=== PATIENT | female | born 1955 | race Caucasian/White ===

== ENCOUNTER 2020-12-05 16:29 | Inpatient (IN) | payer MEDICARE ==
[~2020-12-05] VITALS: Ht 160 cm; Wt 45.4 kg
--- NOTE | ~2020-12-05 | HEMODYNAMI ---
PATIENT:DEE BROWN MEDICAL RECORD: [id number] : 51 LOCATION:[facility] D.2117 ADMISSION DATE: 12/06/20 Generatedon:111:28 Patient name: DEE BROWN Patient #: [id number] : 1955 Date of study: 12/07/2020 Page: Of Hemodynamic Procedure Report Patient Data Patient Demographics Procedure consent was obtained First Name: DEE Gender: Female Last Name: STEPHANIE : 1955 Patient #: [id number] Age: 65 year(s) Race: SSN: [id number] Additional ID: [id number] Contact details [address]: [address] [place] [address] State: [place] City: [place] Zip code: [address] Past Medical History Allergies Allergen Reaction Date Comments Reported Other allergy 12/07/2020 N Admission Admission Data Admission Date: 12/06/2020 Admission Time: 10:18 Room #: D.2117 Lab Results Lab Result Date: 12/07/2020 Lab Result Time: 0:00 Biochemistry Name Units Result Min Max BUN mg/dl 33 --(----)-* 7 18 Creatinine mg/dl 1.3 --(---*)-- 0.6 1.3 eGFR ml/min 43 *-(----)-- 90 120 NONAFRICAN CBC Name Units Result Min Max Hemoglobin g/dl 11.5 *-(----)-- 13.5 17.5 Procedure Procedure Types Cath Procedure Diagnostic Procedure C [facility] w/Coronaries Sedation Charges Moderate Sedation 25-39 minutes PCI Procedure Hemochron ACT Test PTCA PTCA Initial Procedure Description Procedure Date Procedure Date: 12/07/2020 Procedure Start Time: 11:03 Procedure End Time: 11:26 Procedure Staff Name Function Robbi Mckenna MD Performing Physician Dorys Perry RT Monitor Deanna Maurice RT Scrub Ania Blunt RN Nurse Procedure Data Cath Procedure Fluoroscopy Diagnostic fluoroscopy Total fluoroscopy Time: 3.6 time: 3.6 min min Diagnostic fluoroscopy Total fluoroscopy dose: 506 dose: 506 mGy mGy Contrast Material Contrast Material Type Amount (ml) Isovue 300 89 Entry Location Entry Primary Successful Side Size Upsize Upsize Entry Closure Succes sful Closure Location (Fr) 1 (Fr) 2 (Fr) Remarks Device Remarks Femoral Right 5 Fr 6 Fr Exoseal artery Short Estimated blood loss: 10 ml Diagnostic catheters Device Type Used For End Catheter Placement MULTIPACK JL 4.0 5Fr Procedure catheter MULTIPACK 3DRC 5Fr Procedure catheter MULTIPACK Pigtail 5 Fr Ventriculography catheter Procedure Complications No complications Procedure Medications Medication Administration Route Dosage Oxygen etCO2 Nasal cannula 2 l/min Heparin Flush Bag added to field 2 bags (1000units/500ml NS) Lidocaine 2% added to field 20 0.9% NaCl I.V. 100 ml/hr Fentanyl I.V. 25 mcg Versed 0.5 mg Fentanyl I.V. 25 mcg Versed 0.5 mg Heparin Bolus I.V. 4000 units Integrilin (Bolus I.V. 4.5 ml 2mg/ml) Brilinta P.O. 180 mg Hemodynamics Rest HGB: 11.5 (g/dl) Heart Rate: 95 (bpm) Pressure Samples Time Site Value (mmHg) Purpose Heart Use Rate(bpm) 11:12 LV 89/7,12 Snapshot 74 Gradients Valve Time Site Site Mean SEP/DFP Peak To Heart Use 1 2 (mmHg) (sec/min) Peak Rate (mmHg) (bpm) Aortic 11:12 LV AO 74 Snapshots Pre Cath Intra NCS Post Cath Vital Signs Time Heart Resp SPO2 etCO2 NIBP Rhythm Pain Sedation Rate (ipm) (%) (mmHg) (mmHg) Status Level (bpm) 10:52:37 84 13 98 0 114/81(98) NSR 0 (11) 10(A) , No pain 10:56:42 81 15 97 0 106/69(90) NSR 0 (11) 10(A) , No pain 11:00:48 79 17 97 0 100/55(86) NSR 0 (11) 10(A) , No pain 11:04:50 74 17 98 0 99/64(81) NSR 0 (11) 9(A) , No pain 11:08:48 74 15 99 0 107/74(87) NSR 0 (11) 9(A) , No pain 11:12:52 74 19 97 0 94/62(78) NSR 0 (11) 9(A) , No pain 11:16:53 70 18 98 0 88/55(79) NSR 0 (11) 9(A) , No pain 11:20:51 65 13 99 0 86/56(75) NSR 0 (11) 9(A) , No pain 11:24:48 134 15 99 0 90/57(75) NSR 0 (11) 9(A) , No pain Medications Time Medication Route Dose Verified Delivered Reason Notes Effectiveness by by 10:50:32 Oxygen etCO2 2 Ania Ania for low 02 sats Nasal l/min Merlene lBunt, cannula RN RN 10:50:39 Heparin Flush added 2 Ania Ania used for Bag to bags Merlene Blunt procedure (1000units/500ml field RN RN NS) 10:51:17 Lidocaine 2% added 20ml Ania Robbi for local to vial St Merlene John anesthetic field BILLY FRAUSTO 10:51:27 0.9% NaCl I.V. 100 Ania Ania Per physician ml/hr Merlene Blunt, RN RN 10:58:28 Fentanyl I.V. 25 Ania Ania for sedation mcg Merlene Blunt, RN RN 10:58:34 Versed 0.5 Ania Ania mg Merlene Blunt, RN RN 11:14:14 Fentanyl I.V. 25 Ania Ania for sedation mcg Merlene Blunt, RN RN 11:14:17 Versed 0.5 Ania Ania mg Merlene Blunt, RN RN 11:15:36 Heparin Bolus I.V. 4000 Ania Ania for units Merlene Blunt, anticoagulation RN RN 11:25:27 Brilinta P.O. 180 Ania Ania for RELOA DED mg Merlene Blunt, antiplatelet PER RN RN alem FREEDMAN, UNSURE OF WHEN LAST DAILY DOSE WAS GIVEN. 11:15:36 Integrilin I.V. 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 10:27:51 Time tracking: Regular hours (M-F 7:00 - 5:00) 10:27:54 Plan of Care:Hemodynamics will remain stable., Cardiac rhythm will remain stable., Comfort level will be maintained., Respiratory function will remain adequate., Patient/ family verbilizes understanding of procedure., Procedure tolerated without complication., Recovers from procedure without complications.. 10:27:55 Deanna Maurice RT(R) sent for patient. Start room use. 10:49:48 Patient received from Med II to CCL 2 Alert and oriented. Tansferred to table in Supine position. 10:49:49 Warm blankets applied, and suellen hugger turned on for patient comfort. 10:49:49 Correct patient and procedure confirmed by team. 10:49:51 ECG and BP/O2 sat monitors applied to patient. 10:49:51 Vital chart was started 10:49:52 Baseline sample Acquired. 10:49:56 Rhythm: sinus rhythm 10:50:00 Full Disclosure recording started 10:50:12 H&P Date Dictated: 12/06/2020 Within 30 days and on chart., H&P Addendum completed by physician on day of procedure. (MUST COMPLETE FOR ALL OUTPATIENTS). 10:50:14 Pre-procedure instructions explained to patient. 10:50:16 Family unavailable. 10:50:18 Patient NPO since Midnight. 10:50:30 Patient allergic to Other allergyPCN 10:50:32 Oxygen 2 l/min etCO2 Nasal cannula was administered by Ania Blunt RN; for low 02 sats; Verbal order read back and verified. 10:50:34 Is the patient allergic to Iodine/contrast media? No. 10:50:35 Was the patient premedicated? Yes 10:50:38 Is patient on blood thinner?Yes 10:50:39 Heparin Flush Bag (1000units/500ml NS) 2 bags added to field was administered by Ania Blunt RN; used for procedure; Verbal order read back and verified. 10:50:41 ACC The patient was administered the following blood thiners within the last 24 hours: ACCAspirin 10:50:43 Patient diabetic? No. 10:50:50 Snore? No 10:50:58 Airway obstruction? Yes COPD 10:51:03 Patient pain scale 0/10 ?. 10:51:13 IV patent on arrival in left hand with 0.9% NaCl at [facility]. 10:51:17 Lidocaine 2% 20ml vial added to field was administered by Robbi Mckenna MD; for local anesthetic; Verbal order read back and verified. 10:51:27 0.9% NaCl 100 ml/hr I.V. was administered by Ania Blunt RN; Per physician; Verbal order read back and verified. 10::45 Lab Result : BUN 33 mg/dl 10::45 Lab Result : Creatinine 1.3 mg/dl 10::45 Lab Result : eGFR NONAFRICAN 43 ml/min 10::45 Lab Result : Hemoglobin 11.5 g/dl 10:52:08 Lab results completed and on chart. 10:52:13 Right groin area was prepped with chlora-prep and draped in sterile fashion 10:52:14 Alarms reviewed by R. N. 10:52:22 Sharps counted by scrub and verified by R.N. 10:52:27 Physician arrived 10:52:27 --------ALL STOP TIME OUT------ 10:52:28 Final Timeout: patient, procedure, and site verified with staff and physician. All members of the team are in agreement. 10:52:31 Right groin site verified by team. 10:52:36 Fire Safety Assessment: A--An alcohol-based skin anteseptic being used preoperatively., C--Open oxygen or nitrous oxide is being used., D--An ESU, laser, or fiber-optic light is being used. 10:52:44 Physical assessment completed. ASA score P 3 - A patient with severe systemic disease as per Robbi Mckenna MD. 10:52:47 3a) 45-59 Moderately reduced kidney function. 10:52:50 Maximum allowable contrast dose (3.7 X eGFR X 0.75)119 ml. 10:52:55 Sedation plan: IV Moderate Sedation Medication:Versed, Fentanyl 10:53:00 Use device set Femoral Dx 10:53:02 ACIST Syringe (65042) opened to sterile field. 10:53:06 Bag Decanter (2001S) opened to sterile field. 10:53:07 Medline Cath Pack ([id number]) opened to sterile field. 10:53:09 ACIST Hand Control (08664) opened to sterile field. 10:53:10 ACIST Manifold (12984) opened to sterile field. 10:53:11 DIAGNOSTIC Multipack 5Fr catheter set (FC1864) opened to sterile field. 10:53:12 Tegaderm 4 x 4 (1626W) opened to sterile field. 10:53:15 SHEATH 5FR [place] (CFA516) opened to sterile field. 10:53:16 EMERALD Guide Wire (228-415) opened to sterile field. 10:58:28 Fentanyl 25 mcg I.V. was administered by Ania Blunt RN; for sedation; Verbal order read back and verified. 10:58:34 Versed 0.5 mg was administered by Ania Blunt RN; ; Verbal order read back and verified. 11:01:32 Zero performed for pressure channel P1 11:02:14 Procedure started. 11:03:14 Local anesthetic to right femoral artery with Lidocaine 2% by Robbi Mckenna MD.INITIAL ACCESS ONLY 11:08:05 A 5 Fr sheath was inserted into the Right Femoral artery 11:08:17 A MULTIPACK JL 4.0 5Fr catheter was advanced over the wire and used for Procedure. 11:08:46 LCA angiography performed. 11:10:19 Catheter removed. 11:10:27 A MULTIPACK 3DRC 5Fr catheter was advanced over the wire and used for Procedure. 11:11:01 RCA angiography performed. 11:11:12 Catheter removed. 11:11:20 A MULTIPACK Pigtail 5 Fr catheter was advanced over the wire and used for Ventriculography. 11:11:28 LV gram done using PALM 11:12:05 EF : 10 % 11:12:41 Catheter removed. 11:13:56 SHEATH 6FR [place] (VER115) opened to sterile field. 11:13:58 GUIDE 6FR XBLAD 3.5 catheter ([id number]) opened to sterile field. 11:13:59 BMW 300cm Cosmos 2 J wire ([id number]) opened to sterile field. 11:14:05 Proceeding to intervention. 11:14:13 Sheath upsized to a 6 Fr Short. 11:14:14 Fentanyl 25 mcg I.V. was administered by Ania Blunt RN; for sedation; Verbal order read back and verified. 11:14:17 Versed 0.5 mg was administered by Ania Blunt RN; ; Verbal order read back and verified. 11:14:28 6 Fr XBLAD3.5 guide catheter was inserted over the wire 11:14:36 BMW wire advanced. 11:15:36 Heparin Bolus 4000 units I.V. was administered by Ania Blunt RN; for anticoagulation; Verbal order read back and verified. 11:16:08 Wire advanced across lesion. 11:17:26 INFLATOR Merit BasixCompak (VT2327) opened to sterile field. 11:18:59 Inflate balloon Inflation number: 1 A EUPHORA 3.0 x 15 Balloon ([id number]) was prepped and advanced across the Ramus , then inflated to 12 YAHIR for 0:10 (min:sec) . 11:19:18 multi inflations 11:22:24 EXOSEAL 6Fr (EX600) opened to sterile field. 11:22:55 Wire removed. 11:22:56 Guide catheter removed. 11:23:09 Sheath removed intact; hemostasis achieved with Exoseal to the Right Femoral artery. 11:23:11 Procedure ended.(Physican Out) 11:23:21 Fluoroscopy time 03.60 minutes. 11:23:25 Fluoroscopy dose: 506 mGy 11:23:25 Flurop Dose total: 506 11:23:31 Dose Area Product 34038 mGy/cm. 11:23:34 Contrast amount:Isovue 300 89ml. 11:23:36 Maximum allowable dose exceeded? No. 11:23:38 Insertion/operative site no bleeding no hematoma. 11:23:48 Post-procedure physical assessment completed. ASA score P 2 - A patient with mild systemic disease as per Robbi Mckenna MD. 11:23:55 Post procedure rhythm: unchanged. 11:24:00 Estimated blood loss: 10 ml 11:24:02 Post procedure instruction explained to patient.Patient verbalizes understanding. 11:25:02 Procedure type changed to Cath procedure, Diagnostic procedure, LHC, LHC w/Coronaries, Sedation Charges, Moderate Sedation 25-39 minutes, PCI procedure, Hemochron ACT Test, PTCA, PTCA Initial 11:25:03 Procedure and supply charges have been captured, reviewed, submitted and are correct. 11:25:27 Brilinta 180 mg P.O. was administered by Ania Blunt RN; for antiplatelet therapy; RELOADED PER DR. FREEDMAN, UNSURE OF WHEN LAST DAILY DOSE WAS GIVEN. Verbal order read back and verified. 11:26:29 Procedure Complication : No complications 11:26:31 Vital chart was stopped 11:26:38 [facility] Findings: MVD- PCI performed (see procedure note) 11::39 ACT drawn and resulted at 248 seconds. (normal therapeutic range 180-240 seconds). 11:26:41 Operative report dictated upon procedure completion. 11:26:42 See physician's report for complete and final results. 11:26:45 Report given to [facility]. 11:26:54 Patient transfered to [facility] with Bed. 11:26:56 Procedure ended. 11::56 Full Disclosure recording stopped 11:27:02 End room use (Document Last) 11:27:39 End room use (Document Last) 11:28:06 End room use (Document Last) 11:15:36 Integrilin (Bolus 2mg/ml) 4.5 ml I.V. was administered by Ania Blunt RN; for anticoagulation; 5.5ml wasted Verbal order read back and verified. Intervention Summary Intervention Notes Time ActionType Lesion and Equipment Action# Pressure Duration Attributes Used 11:18:59 Inflate Ramus EUPHORA 1 12 00:10 balloon 3.0 x 15 Balloon ([id number]) Device Usage Item Name Manufacture Quantity Catalog Hospital Part Current Minimal L ot# / Number Charge Number Stock Stock Serial# Code ACIST Acist 1 55753 007125 154048 511758 20 Syringe Medical (63903) Systems Inc Bag Microtek 1 2001S 127989 61774 520397 5 Decanter Medical Inc. () Medline Medline 1 [id number] 812821 09667 082784 5 Cath Pack ([id number]) ACIST Hand Acist 1 62582 443086 338118 301714 5 Control Medical (95209) Systems Inc ACIST Acist 1 81292 572391 490079 818011 5 Manifold Medical (79605) Systems Inc DIAGNOSTIC Cardinal 1 OA2566 648302 19597 984843 30 iCAD 5Fr catheter set (PD9837) Tegaderm 4 3M 1 1626W 984874 000286 909458 5 x 4 (1626W) SHEATH 5FR Terumo 1 CHJ045 343176 594151 594289 5 [place] (FZE821) EMERALD Cardinal 1 502-455 101006 986917 252632 5 Guide Wire Health (502455) MULTIPACK Cardinal 1 475838 5 JL 4.0 5Fr Health catheter MULTIPACK Cardinal 1 803007 5 3DRC 5Fr Health catheter MULTIPACK Cardinal 1 736537 5 Pigtail 5 Health Fr catheter SHEATH 6FR Terumo 1 TSL199 625132 271932 222619 40 [place] (QOP335) GUIDE 6FR Cardinal 1 55050842 546681 333374 243671 10 XBLAD 3.5 Health catheter (75280846) BMW 300cm Paz 1 [id number] 034840 115766 920515 5 Cosmos 2 Vascular J wire (1414884N) INFLATOR Merit 1 KQ8190 318840 896428 896360 15 [facility] Medical BasixCompak (GN2277) EUPHORA 3.0 Medtronic 1 [id number] 479340 294893 274548 5 2 [id number] x 15 Balloon ([id number]) EXOSEAL 6Fr Cardinal 1 EX600 616312 879317 446387 10 (EX600) Health Signature Audit [place] Stage Time Signature Unsigned Intra-Procedure 12/07/2020 Dorys Perry 11:27:39 AM RT(R) Intra-Procedure 12/07/2020 Ania Blunt 11:28:06 AM RN Intra-Procedure 12/07/2020 Robbi Levine 11:28:35 AM Alan FRAUSTO Signatures Performing Physician : Signature : Robbi Mckenna MD Date : Time : Monitor : Dorys Perry Signature : RT Date : Time : Nurse : Ania Blunt, Signature : RN Date : Time : [address] [place] [address] [place] [address]
[~2020-12-05 16:29] MED LIST: ADOXA100 MG PO; AZITHROMYCIN500 MG PO; BRILINTA90 MG PO; CARAFATE1 G PO; COREG 3.1253.125 MG PO; ENTRESTO 24 MG1 EACH PO; FLORAJEN3 CAPS460 MG PO; K-TAB10 MEQ PO; LASIX40 MG PO; MEDROL DOSE PACK4 MG PO; MUCINEX600 MG PO; NITROQUICK0.4 MG SL; OMNICEF300 MG PO; PROTONIX40 MG PO; TESSALON PERLE100 MG PO; VENTOLIN HFA [SP8 GM INH; ZITHROMAX250 MG PO; ZOLOFT50 MG PO
[2020-12-05 17:05] LABS: BASOPHILS 1.7 % (0-2); EOSINOPHILS 1.9 % (0-7); HEMATOCRIT 37.9 % (36.0-48.0); HEMOGLOBIN 12.3 g/dL (12-16); IMMATURE GRANULOCYTES 0.3 % (0-5); LYMPHOCYTE ABS# 2.04 10x3/uL (1.18-3.74); LYMPHOCYTES 19.3 % (15-50); MCH 28.9 pg (26.0-34.0); MCHC 32.5 g/dL (31.0-37.0); MEAN PLATELET VOLUME 9.8 fL (7.4-10.4); MONOCYTES 7.4 % (2-11); NEUTROPHIL ABS# 7.34 10x3/uL (1.56-6.13); NEUTROPHILS 69.4 % (40-80); PLATELET COUNT 372 10x3/uL (130-400); RBC 4.26 10x6/uL (4.00-5.40); RDW 16.1 % (11.5-14.5); WBC 10.6 10x3/uL (4.8-10.8)
[2020-12-05 17:22] LABS: APTT 34.6 SECONDS (22.8-39.4); INR 1.26 (0.85-1.17); PROTIME 14.6 SECONDS (11.6-15.0)
[2020-12-05 17:26] LABS: CALC OSMOLALITY 280 mosm/kg (275-300); CARBON DIOXIDE 22.3 mmol/L (21.0-32.0); CHLORIDE - SERUM 101 mmol/L (98-107); CREATININE - SERUM 1.3 mg/dL (0.6-1.3); GLUCOSE 123 mg/dL (74-106); POTASSIUM - SERUM 3.9 mmol/L (3.5-5.1); SODIUM 137 mmol/L (136-145); UREA NITROGEN 28 mg/dL (7-18); eGFR NON AFRICAN AMERICAN 43 mL/min (90-120)
[2020-12-05 17:33] LABS: ALBUMIN 3.4 g/dL (3.4-5.0); ALKALINE PHOSPHATASE 100 U/L (30-120); ALT (SGPT) 20 U/L (10-68); BILIRUBIN - TOTAL 0.65 mg/dL (0.2-1.3); CKMB 2.4 U/L (0.0-3.6); CREATINE KINASE 48 UL (21-215); MAGNESIUM - SERUM 2.1 mg/dL (1.8-2.4); PROTEIN - SERUM 7.5 g/dL (6.4-8.2); TROPONIN-I 0.034 ng/mL (0.000-0.060)
--- NOTE | 2020-12-05 21:43 | NUR ---
ADMIT TO ROOM 2117 FROM ER. ALERT/ORIENTED. ADMISSION ASSESSMENT AND HISTORY COMPLETED. HOME MEDS REVIEWED. PT STATES SHE HAS NOT TAKEN ANY MEDS FOR OVER ONE MONTH DUE TO FINANCIAL ISSUES. HER HOME SITUATION IS ALSO UP IN THE AIR AND SHE IS JUST "HOUSE TO HOUSE" AT THIS TIME PER PATIENT.
[2020-12-05 21:50] VITALS: BMI 17.7
[2020-12-05 23:00] LABS: CKMB 1.9 U/L (0.0-3.6); CREATINE KINASE 53 UL (21-215); TROPONIN-I 0.028 ng/mL (0.000-0.060)
[2020-12-06 00:30] VITALS: BP 101/51
[2020-12-06 03:49] LABS: CREATINE KINASE 54 UL (21-215); TROPONIN-I 0.038 ng/mL (0.000-0.060)
[2020-12-06 04:30] VITALS: BP 100/60
[2020-12-06 06:23] LABS: BASOPHILS 1.4 % (0-2); HEMATOCRIT 35.5 % (36.0-48.0); HEMOGLOBIN 11.1 g/dL (12-16); IMMATURE GRANULOCYTES 0.2 % (0-5); LYMPHOCYTE ABS# 3.02 10x3/uL (1.18-3.74); LYMPHOCYTES 29.8 % (15-50); MCH 28.1 pg (26.0-34.0); MCHC 31.3 g/dL (31.0-37.0); MCV 89.9 fL (80.0-100.0); MEAN PLATELET VOLUME 10.1 fL (7.4-10.4); MONOCYTES 8.9 % (2-11); NEUTROPHIL ABS# 5.53 10x3/uL (1.56-6.13); NEUTROPHILS 54.7 % (40-80); PLATELET COUNT 358 10x3/uL (130-400); RBC 3.95 10x6/uL (4.00-5.40); RDW 16.1 % (11.5-14.5); WBC 10.1 10x3/uL (4.8-10.8)
[2020-12-06 06:59] LABS: ANION GAP 14.7 mmol/L (8-16); BILIRUBIN - TOTAL 0.52 mg/dL (0.2-1.3); CALCIUM 9.1 mg/dL (8.5-10.1); CARBON DIOXIDE 24.7 mmol/L (21.0-32.0); CREATININE - SERUM 1.4 mg/dL (0.6-1.3); PHOSPHOROUS 5.3 mg/dL (2.5-4.9); POTASSIUM - SERUM 4.4 mmol/L (3.5-5.1); PROTEIN - SERUM 6.6 g/dL (6.4-8.2)
--- NOTE | 2020-12-06 07:40 | NUR ---
INITIAL ROUNDS- PT RESTING COMFORTABLY IN BED, A/O X4, RESP EVEN AND NONLABORED ON RA. LT UPPER ARM IV SL. SR-65 ON TELE. PT DENIES ANY NEEDS AT THIS TIME. CALL LIGHT IN REACH, WILL CONTINUE PLAN OF CARE.
[2020-12-06 08:42] VITALS: BP 101/68
[2020-12-06 10:26] LABS: CKMB 2.4 U/L (0.0-3.6); CREATINE KINASE 47 UL (21-215); TROPONIN-I 0.038 ng/mL (0.000-0.060)
[2020-12-06 11:43] VITALS: BP 104/66
[2020-12-06 11:55] LABS: BILIRUBIN NEGATIVE (NEGATIVE); KETONE NEGATIVE (NEGATIVE); NITRITE NEGATIVE (NEGATIVE); UROBILINOGEN NORMAL mg/dL (< 2)
--- NOTE | 2020-12-06 12:03 | NUR ---
CONSENTS SIGNED BY PT AND PLACED ON CHART. GAVE 2MG OF MORPHINE FOR PAIN LEVEL OF 8/10, ALSO GAVE 4MG OF ZOFRAN. PT DENIES ANY OTHER NEEDS AT THIS TIME. CALL LIGHT IN REACH.
[2020-12-06 13:49] LABS: UDS - AMPHET NEGATIVE QUAL (NEGATIVE); UDS - BARB NEGATIVE QUAL (NEGATIVE); UDS - BENZO NEGATIVE QUAL (NEGATIVE); UDS - COCAINE NEGATIVE QUAL (NEGATIVE); UDS - OPIATE POSITIVE QUAL (NEGATIVE); UDS - PCP NEGATIVE QUAL (NEGATIVE); UDS - THC NEGATIVE QUAL (NEGATIVE)
--- NOTE | 2020-12-06 15:34 | NUR ---
WENT INTO PT'S ROOM BECAUSE CALL LIGHT WAS GOING OFF. PT CRYING IN ROOM VERY ANXIOUS ABOUT NOT ONLY HER HOSPITAL STAY BUT ALSO FAMILY PROBLEMS. CONTACTED [facility] AND GOT NEW ORDER FOR 0.5 ATIVAN PO BIDPRN.
--- NOTE | 2020-12-06 15:53 | NUR ---
0.5MG OF ATIVAN GIVEN AT THIS TIME FOR ANXIETY.
[2020-12-06 16:33] VITALS: BP 126/81
--- NOTE | 2020-12-06 17:09 | MORECARE ---
CASE MANAGEMENT DISCHARGE SUMMARY PATIENT: DEE BROWN UNIT: [id number] ADM DATE: 12/05/20 AGE: 65 : 53 SEX: F ROOM/BED: [facility] AUTHOR: HENRIQUE,DOC PHYSICIAN: REFERRING PHYSICIAN: TAYO BRAND MD DATE OF SERVICE: 12/06/20 Case Management Discharge Planning Summary DCP REVIEW SUMMARY ANTICIPATED D/C DATE: 12/06/2020 EXPECTED LOS : 1 CASE STATUS: DCP Initiated INITIAL REVIEW: 12/05/2020 INITIAL REVIEWER: Robby Barrios FINAL DISCHARGE DISPOSITION: : FINAL REVIEWER: FINAL REVIEW DATE: DCP Focus Questions & Answers QUESTION: ANSWER : PATIENT: DEE BROWN ENCOUNTER: [id number] MEDICAL RECORD#: [id number] ADMISSION DATE: 12/05/2020 DISCHARGE DATE: ATTENDING MD: TAYO BONILLA : AGE: 65 MARITAL STATUS: D DC PLAN ID: [id number] FACILITY: [facility] PRINTED ON: 12/06/20 17:09 CT All edits/amendments must be made on the electronic document DICTATION DATE: 12/06/201708 [facility] MANAGER: DM 12/06/201708 RPT#: [id number] DC DATE: STATUS: ADM IN [facility] [address] [place] [address] END OF REPORT
--- NOTE | 2020-12-06 17:36 | MORECARE ---
CASE MANAGEMENT DISCHARGE SUMMARY PATIENT: DEE BROWN UNIT: [id number] ADM DATE: 12/05/20 AGE: 65 : 53 SEX: F ROOM/BED: D.8575 AUTHOR: BUCK DUENAS PHYSICIAN: REFERRING PHYSICIAN: TAYO BRAND MD DATE OF SERVICE: 12/06/20 Case Management Discharge Planning Summary DCP REVIEW SUMMARY ANTICIPATED D/C DATE: 12/06/2020 EXPECTED LOS : 1 CASE STATUS: DCP Initiated INITIAL REVIEW: 12/05/2020 INITIAL REVIEWER: Robby Barrios FINAL DISCHARGE DISPOSITION: : FINAL REVIEWER: FINAL REVIEW DATE: DCP Focus Questions & Answers DCP Evaluation QUESTION: ANSWER Family / Caregiver's ability to cope with chronic illness: : c. Inadequate (Enables pt. to make bad choices, cannot meet pt's. needs, difficult family dynamics) Patient gives permission to discuss discharge plans with: (name, relationship and number) : sonSam, Patient's ability to cope with chronic illness : d. No chronic illness Patient's current cognitive status: : *Oriented to person, place, situation, time and present Patient and/or caregiver agree upon recommended discharge plan? : No Physical Status: : Independent with ADL's Family / Caregiver's ability to cope with chronic illness: : c. Inadequate (Enables pt. to make bad choices, cannot meet pt's. needs, difficult family dynamics) Functional screen assessment: : Basic needs can adequately be met by self Does the patient have the ability to pay for or attain post discharge needs / services? : Yes Alternate discharge plan (if recommended plan not agreed upon by patient and/or caregiver): : PATIENT WOULD LIKE TO DISCUSS PALLITATIVE CARE OPTIONS WITH PHYSICIAN Living Arrangements: : Other Is there a likelihood that the patient will require additional services to return to the preadmission environment? : Yes Equipment needed for post hospitalization: : Other Living arrangements comments: : itinerant sheltering with friends Baseline cognitive status: : *Oriented to person, place, situation, time and present Patient with capacity for self-care or can be cared for in same environment as prior to hospitalization? : Yes Other Equipment comments: : Portable Oxygen tank Medication Management: : Patient states can afford medications Medication Management: : Patient states can read and understand medication labels Pharmacy name(s): : [facility] Does Patient have transportation to get home and to follow-up medical appointments when discharged from the hospital? : No Would patient like to participate in any Care Coordination programs (if applicable): : Not applicable Comments: : PATIENT DOES NOT HAVE A PRIMARY RESIDENCE Does the patient have electricity at home? : No Comments (electricity): : PATIENT DOES NOT HAVE A PRIMARY RESIDENCE Does the patient have running water in their house? : No Comment (running water): : PATIENT DOES NOT HAVE A PRIMARY RESIDENCE Equipment in use: : Other Other Equipment comments: : OXYGEN CONCENTRATOR Equipment agency name and contact information: : [facility] Mental health screen: : No mental health history DCP Re-evaluation QUESTION: ANSWER Would patient like to participate in any Care Coordination programs (if applicable): : Not applicable PATIENT: DEE BROWN ENCOUNTER: [id number] MEDICAL RECORD#: [id number] ADMISSION DATE: 12/05/2020 DISCHARGE DATE: ATTENDING MD: TAYO BONILLA : AGE: 65 MARITAL STATUS: D DC PLAN ID: [id number] FACILITY: [facility] PRINTED ON: 12/06/20 17:35 CT All edits/amendments must be made on the electronic document DICTATION DATE: 12/06/201734 DISASTER OR DAMAGE CONTROL SPECIALIST: LYDIA 12/06/201734 [facility]#: [id number] DC DATE: STATUS: ADM IN [facility] [address] [place] [address] END OF REPORT
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
[2020-12-06 22:06] VITALS: BP 107/73
[2020-12-07] VITALS: BP 121/84
[2020-12-07 06:41] LABS: BASOPHILS 1.4 % (0-2); EOSINOPHILS 3.7 % (0-7); HEMATOCRIT 36.5 % (36.0-48.0); HEMOGLOBIN 11.5 g/dL (12-16); IMMATURE GRANULOCYTES 0.3 % (0-5); LYMPHOCYTE ABS# 2.65 10x3/uL (1.18-3.74); LYMPHOCYTES 26.9 % (15-50); MCH 28.7 pg (26.0-34.0); MCHC 31.5 g/dL (31.0-37.0); MEAN PLATELET VOLUME 10.9 fL (7.4-10.4); MONOCYTES 9.8 % (2-11); NEUTROPHILS 57.9 % (40-80); PLATELET COUNT 312 10x3/uL (130-400); RBC 4.01 10x6/uL (4.00-5.40); RDW 15.9 % (11.5-14.5); WBC 9.9 10x3/uL (4.8-10.8)
[2020-12-07 06:51] LABS: ALBUMIN 3.2 g/dL (3.4-5.0); BILIRUBIN - TOTAL 0.6 mg/dL (0.2-1.3); CALCIUM 8.6 mg/dL (8.5-10.1); CARBON DIOXIDE 24.1 mmol/L (21.0-32.0); CREATININE - SERUM 1.3 mg/dL (0.6-1.3); MAGNESIUM - SERUM 2.1 mg/dL (1.8-2.4); PHOSPHOROUS 4.9 mg/dL (2.5-4.9); POTASSIUM - SERUM 4.1 mmol/L (3.5-5.1); PROTEIN - SERUM 7.2 g/dL (6.4-8.2)
[2020-12-07 08:00] VITALS: BP 107/72
--- NOTE | 2020-12-07 08:24 | NUR ---
AM MEDS HELD D/T POSSIBLE HEART CATH THIS AM. PT AWAKE AND ALERT, IV FLUSHED WITH 10ML NS. PT DENIES ANY NEEDS, RR EVEN NON LABORD WITH O2 IN PLACE. CLWR.
--- NOTE | 2020-12-07 10:00 | NUR ---
PREOP MEDICATIONS ORDER PLACED AT THIS TIME.
--- NOTE | 2020-12-07 10:08 | NUR ---
PREOP MEDS COMPLETED AT THIS TIME. PT SITTING UP IN BED, RR EVEN NON LABORED. NO PAIN OR NEEDS VOICED AT THIS TIME. CLWR.
[2020-12-07 10:27] LABS: CHOL - HDL RATIO 3.5 ratio (2.3-4.1); LDL-HDL RATIO 2.3 ratio (1.5-3.5)
--- NOTE | 2020-12-07 10:50 | NUR ---
PT OFF FLOOR TO EDUCATIONAL SIGN LANGUAGE INTERPRETER
[2020-12-07 13:02] VITALS: Ht 160 cm; Wt 45.4 kg
--- NOTE | 2020-12-07 13:25 | NUR ---
PT RESTING POST HEART CATH, RR EVEN NON LABORED. VS HAVE REMAINED STABLE. SITE TO RIGHT GROIN DRESSED AND SECURE. NO NEEDS VOICED AT THIS TIME. CLWR.
[2020-12-07 15:00] VITALS: BP 109/74
--- NOTE | 2020-12-07 15:28 | NUR ---
VS REMAINED STABLE. PT BEDREST IS COMPLETE.
--- NOTE | 2020-12-07 15:36 | NUR ---
PT ASSISTED TO AND FROM TOILET AT THIS TIME, PT TOLERATED WELL. NO FURTHER NEEDS VOICED. CLWR.
--- NOTE | 2020-12-07 15:53 | NUR ---
SPOKE WITH DR CARRILLO REGARDING THE DOBUTAMINE DRIP IN THE EMAR BUT WAS NOT STARTED ON PT FROM CONTACT CENTER SPECIALIST. . DR CARRILLO STATES TO HOLD AT THIS TIME AND HE WILL GET BACK WITH NURSE REGARDING ORDER.
[2020-12-07 20:00] VITALS: BP 125/81
[2020-12-08] VITALS: BP 107/74
[2020-12-08 04:00] VITALS: BP 128/73
[2020-12-08 05:19] LABS: EOSINOPHILS 4.2 % (0-7); HEMATOCRIT 38.3 % (36.0-48.0); HEMOGLOBIN 12.2 g/dL (12-16); IMMATURE GRANULOCYTES 0.3 % (0-5); LYMPHOCYTE ABS# 2.61 10x3/uL (1.18-3.74); LYMPHOCYTES 25.8 % (15-50); MCHC 31.9 g/dL (31.0-37.0); MEAN PLATELET VOLUME 10.6 fL (7.4-10.4); MONOCYTES 9.8 % (2-11); NEUTROPHIL ABS# 5.96 10x3/uL (1.56-6.13); NEUTROPHILS 58.9 % (40-80); PLATELET COUNT 371 10x3/uL (130-400); RBC 4.21 10x6/uL (4.00-5.40); WBC 10.1 10x3/uL (4.8-10.8)
[2020-12-08 05:45] LABS: ALBUMIN 3.2 g/dL (3.4-5.0); ANION GAP 12.3 mmol/L (8-16); BILIRUBIN - TOTAL 0.51 mg/dL (0.2-1.3); CALCIUM 8.7 mg/dL (8.5-10.1); CARBON DIOXIDE 28.8 mmol/L (21.0-32.0); CREATININE - SERUM 1.4 mg/dL (0.6-1.3); PHOSPHOROUS 4.2 mg/dL (2.5-4.9); POTASSIUM - SERUM 4.1 mmol/L (3.5-5.1); PROTEIN - SERUM 7.5 g/dL (6.4-8.2)
--- NOTE | 2020-12-08 08:02 | NUR ---
PT RECEIVED ASLEEP BUT AROUSE TO VOICE ON ENTERING ROOM. STATES ONLY SLEEPING HOUR AT A TIME. BSC EMPTIED.
[2020-12-08 08:17] VITALS: BP 96/54
--- NOTE | 2020-12-08 08:47 | CN ---
PATIENT NAME:DEE BROWN MEDICAL RECORD: [id number] : 51 LOCATION:D. D.2117 ADMIT DATE: 12/06/20 ACCOUNT: [id number] CONSULTING PHYSICIAN: TASHA REYES MD REFERRING PHYSICIAN: TAYO BRAND MD DATE OF CONSULTATION: 12/06/2020 HISTORY OF PRESENT ILLNESS: A 65-year-old female with a known history of coronary artery disease, status post intervention. Has a history of cardiomyopathy, obstructive pulmonary disease. Now, presents with worsening angina over the past week. Of note, she ran out of her medications about a month ago and due to social factors, was unable to get these refilled. She is admitted for acute coronary syndrome, cardiomyopathy exacerbation. We are asked to see her concerning her cardiovascular status. PAST MEDICAL HISTORY: Includes: 1. History of coronary artery disease as described above. 2. Hypertension. 3. Hyperlipidemia. 4. Obstructive pulmonary disease. ALLERGIES: PENICILLIN. MEDICATIONS: Brilinta 90 mg p.o. b.i.d., carvedilol 3.125 b.i.d., Entresto 24/26 p.o. b.i.d., Lasix 40 every day, potassium 10 every day, Carafate 1 mg a.c. and at bedtime. SOCIAL HISTORY: Previously quit smoking, nondrinker. Really no physical activity at this point. REVIEW OF SYSTEMS: The patient reports easy bruising but reports no swollen glands. The patient reports no fever, no night sweats, no significant weight gain, no significant weight loss. No significant exercise tolerance. The patient reports no dry eyes, no irritation, no vision change. Patient reports no difficulty hearing and no ear pain. Patient reports no frequent nose bleeds or nose and sinus problems. Patient reports on arm pain on exertion. No shortness of breath while lying down. No history of heart murmur. Patient reports no cough, no wheezing or coughing up blood. Patient reports no abdominal pain, no vomiting. Normal appetite. No diarrhea and not vomiting blood. No nausea and no constipation. Patient reports no incontinence. No difficulty urinating. No hematuria. No increased frequency. Patient reports no muscle aches. No weakness, no arthralgias, no back pain. No swelling of the extremities. Patient reports no abnormal mole, no jaundice, no rashes. Reports no loss of consciousness. No weakness and no numbness. No seizures, dizziness, or headaches. The patient reports no depression, no sleep disturbance, feeling safe in a relationship and no alcohol abuse. Patient reports on fatigue. Reports no runny nose or sinus pressure. No itching, no hives, and no frequent sneezing. PHYSICAL EXAMINATION: GENERAL: Somewhat chronically ill-appearing, in no acute distress. VITAL SIGNS: Blood pressure 101/68, pulse 86 and regular. HEENT: Normocephalic, atraumatic. NECK: No bruits are noted. HEART: Regular, II/ systolic ejection murmur. CONSULT REPORT [id number] DEE BROWN LUNGS: Prolonged expiratory phase. Few expiratory wheezes. ABDOMEN: Soft, nontender. EXTREMITIES: Pulses 2+. There is no edema. IMPRESSION: Acute coronary syndrome, probably mild volume overload with elevated BNP as well with known history of cardiomyopathy. At this point in time, given symptomatology and window of restenosis. PLAN: For angiography, intervention based on the above. TRANSINT:[id number] Voice Confirmation ID: [id number] DOCUMENT ID: [id number] TASHA REYES MD at 0847 CC: [id number] DICTATION DATE: 12/06/20 1044 FRUIT PACKER FACE AND FILL: 12/06/20 1407 ADM IN [place] [address] [place] [address]
--- NOTE | 2020-12-08 08:48 | OP ---
PATIENT NAME: DEE BROWN MEDICAL RECORD: [id number] :51 LOCATION:D.M2 D.2116 ADMISSION DATE:12/06/20 SURGEON: TASHA REYES MD DATE OF OPERATION: 12/07/2020 PROCEDURES: Left heart catheterization, selective coronary angiography, plus PTCA to the ramus branch. CATHETERS: A 5-[place] Citizen sheath, 5/4 left and right Deya, 5/4 pig. The procedure was well tolerated. The patient returned to the ely. Sheath removed. ExoSeal device placed. FINDINGS: Left ventriculography in 30-degree PALM view shows severe diffuse hypokinesis, reduced EF 10-15%. CORONARY ANATOMY: LEFT MAIN: Left main is free of disease. LAD: LAD shows luminal irregularities. No flow obstructive stenosis. Ramus intermedius shows in-stent restenosis of about 80% in the mid portion. Circumflex artery shows basically subtotal fills via left to left collaterals. Right coronary artery totally occluded, fills via left to right collaterals. PLAN: Revision of the ramus momentarily. DESCRIPTION: A 5-[place] Citizen sheath was exchanged for a 6-[place] Citizen sheath. XB LAD guiding catheter provided excellent guide catheter support followed by a 300 cm Whisper wire. We used a 3.0 x 15 mm Cameron balloon up and down the stent to reexpand as well as reducing the 80% restenosis stent down to no significant residual. TIANA flow was III throughout the procedure. There was a good distal plumping in the vasculature. The patient was started on Dobutrex drip for LV dysfunction. Pressure was somewhat marginal for ARB and beta blockade. We will try low-dose Aldactone for some inotropic support. TRANSINT:[id number] Voice Confirmation ID: [id number] DOCUMENT ID: [id number] TASHA REYES MD at 0848 CC: [id number] DICTATION DATE: 12/07/201125 DESIGN ENGINEERING MANAGER: 12/07/202053 ADM IN [place] [address] [place] [address]
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
[2020-12-08 12:42] VITALS: BP 101/56
[2020-12-08 15:57] VITALS: BP 121/68
--- NOTE | 2020-12-08 19:45 | NUR ---
RECIEVED UP IN BED WITH EYES OPEN AND TV ON. ALERT AND ORIENTED X4. UP AD LISA TO B/R. DENIES ANY NEEDS AT THIS TIME.
[2020-12-08 20:00] VITALS: BP 105/54
[2020-12-09 05:03] VITALS: BP 105/59
[2020-12-09 06:42] LABS: ALBUMIN 2.6 g/dL (3.4-5.0); ANION GAP 12.4 mmol/L (8-16); BASOPHILS 0.7 % (0-2); BILIRUBIN - TOTAL 0.42 mg/dL (0.2-1.3); CALCIUM 8.1 mg/dL (8.5-10.1); CARBON DIOXIDE 27.8 mmol/L (21.0-32.0); CREATININE - SERUM 1.1 mg/dL (0.6-1.3); EOSINOPHILS 6.4 % (0-7); HEMATOCRIT 30.7 % (36.0-48.0); IMMATURE GRANULOCYTES 0.2 % (0-5); LYMPHOCYTE ABS# 1.47 10x3/uL (1.18-3.74); LYMPHOCYTES 17.2 % (15-50); MAGNESIUM - SERUM 1.8 mg/dL (1.8-2.4); MCH 28.6 pg (26.0-34.0); MCHC 31.6 g/dL (31.0-37.0); MCV 90.6 fL (80.0-100.0); MEAN PLATELET VOLUME 10.2 fL (7.4-10.4); MONOCYTES 11.5 % (2-11); NEUTROPHIL ABS# 5.46 10x3/uL (1.56-6.13); PHOSPHOROUS 2.9 mg/dL (2.5-4.9); POTASSIUM - SERUM 3.2 mmol/L (3.5-5.1); PROTEIN - SERUM 5.9 g/dL (6.4-8.2); RBC 3.39 10x6/uL (4.00-5.40); RDW 15.8 % (11.5-14.5); WBC 8.5 10x3/uL (4.8-10.8)
[2020-12-09 06:53] LABS: HEMOGLOBIN 9.7 g/dL (12-16); PLATELET COUNT 292 10x3/uL (130-400)
[2020-12-09 08:04] VITALS: BP 114/63
--- NOTE | 2020-12-09 08:26 | NUR ---
AM MEDS GIVEN AT THIS TIME WITH FRESH DRINK AT BEDSIDE. PT AWAKE AND ALERT WATCHING TV AND EATING CEREAL FOR BREAKFAST. RR EVEN NON LABORED. O2 IN PLACE. IV INFUSING WITHOUT DIFFICULTY. NO NEEDS VOICED AT THIS TIME. CLWR.
--- NOTE | 2020-12-09 09:43 | NUR ---
PRN TYLENOL GIVEN D/T C/O HEADACHE. NO FURTHER NEEDS VOICED. CLWR.
[2020-12-09 11:47] VITALS: BP 107/64
--- NOTE | 2020-12-09 12:42 | NUR ---
Nutrition Follow-up: Pt reports good PO intake and that she is "hungry all the time". C/o nausea without vomiting. Requests snacks in between meals. Likes Ensure and states that she could drink 1/day. Diet: Cardiac No new wt; last wt: 100# (12/07) Last BM: 12/07 Labs noted: Na 132, K+ 3.2, BUN 22, GFR 52, Ca 8.1, Alb 2.6 Meds noted: Carafate, Florajen, Zofran, Bumex, Micro K, electrolyte protocol -+snacks in between meals and Ensure 1/day. -RD will follow up in 5-7 days.
[2020-12-09 20:00] VITALS: BP 121/75
--- NOTE | 2020-12-09 20:23 | NUR ---
SPOKE WITH DR. REYES WITH ORDERS TO D/C DOBUTAMINE. OUT OF ROOM AT THIS TIME FOR CT. REPORTS PAIN AT 0M AND NO NAUSEA.
[2020-12-10 06:19] LABS: ALBUMIN 2.9 g/dL (3.4-5.0); ANION GAP 10.7 mmol/L (8-16); BILIRUBIN - TOTAL 0.42 mg/dL (0.2-1.3); CALCIUM 8.5 mg/dL (8.5-10.1); CARBON DIOXIDE 30.5 mmol/L (21.0-32.0); CREATININE - SERUM 1.3 mg/dL (0.6-1.3); MAGNESIUM - SERUM 2.1 mg/dL (1.8-2.4); PHOSPHOROUS 3.5 mg/dL (2.5-4.9); PROTEIN - SERUM 6.7 g/dL (6.4-8.2)
[2020-12-10 06:20] LABS: POTASSIUM - SERUM 4.2 mmol/L (3.5-5.1)
[2020-12-10 06:23] LABS: BASOPHILS 0.7 % (0-2); EOSINOPHILS 7.9 % (0-7); HEMATOCRIT 33.1 % (36.0-48.0); HEMOGLOBIN 10.3 g/dL (12-16); IMMATURE GRANULOCYTES 0.4 % (0-5); LYMPHOCYTE ABS# 1.41 10x3/uL (1.18-3.74); LYMPHOCYTES 16.9 % (15-50); MCH 28.7 pg (26.0-34.0); MCHC 31.1 g/dL (31.0-37.0); MCV 92.2 fL (80.0-100.0); MONOCYTES 11.3 % (2-11); NEUTROPHIL ABS# 5.22 10x3/uL (1.56-6.13); NEUTROPHILS 62.8 % (40-80); PLATELET COUNT 308 10x3/uL (130-400); RBC 3.59 10x6/uL (4.00-5.40); RDW 16.2 % (11.5-14.5); WBC 8.3 10x3/uL (4.8-10.8)
[2020-12-10 08:23] VITALS: BP 123/76
[2020-12-10 10:12] LABS: HEPATITIS C ANTIBODY 2.1 S/CO RAT (0.0-0.9)
[2020-12-10 15:11] VITALS: BP 120/77
--- NOTE | 2020-12-10 21:00 | NUR ---
PT REFUSED TELEMETRY. NOTIFIED ELECTRICIAN RESEARCHTHEODORA CERVANTES. TELEMETRY D/C'ED.
[2020-12-10 22:48] VITALS: BP 114/75
--- NOTE | 2020-12-10 22:52 | NUR ---
RECEIVED PATIENT LYING IN HER BED AWAKE RESTING WITH EYES OPEN, EXPLAINED TO HER THAT I WOULD TAKE OVER WITH HER CARE FOR THE REMAINING OF THE SHIFT. SHE IS NOT HAVING ANY DIFFICULTY BREATHING AT THIS TIME. SHE HAS OXYGEN AT 2 LITERS INFUSING PER NASAL CANULA. DENIES ANY PAIN AT THIS TIME OR ANY NEEDS. WILL FOLLOW POC. CALL LIGHT WITHIN REACH.
[2020-12-11 00:15] VITALS: BP 124/78
[2020-12-11 04:00] VITALS: BP 120/82
[2020-12-11 07:36] LABS: ALBUMIN 3.1 g/dL (3.4-5.0); ANION GAP 13.4 mmol/L (8-16); BILIRUBIN - TOTAL 0.65 mg/dL (0.2-1.3); CALCIUM 8.9 mg/dL (8.5-10.1); CARBON DIOXIDE 28.3 mmol/L (21.0-32.0); CREATININE - SERUM 1.2 mg/dL (0.6-1.3); POTASSIUM - SERUM 4.7 mmol/L (3.5-5.1); PROTEIN - SERUM 6.8 g/dL (6.4-8.2)
[2020-12-11 07:39] LABS: EOSINOPHILS 8.6 % (0-7); HEMATOCRIT 36.5 % (36.0-48.0); HEMOGLOBIN 11.6 g/dL (12-16); IMMATURE GRANULOCYTES 0.4 % (0-5); LYMPHOCYTE ABS# 2.38 10x3/uL (1.18-3.74); LYMPHOCYTES 29.8 % (15-50); MCH 29.2 pg (26.0-34.0); MCHC 31.8 g/dL (31.0-37.0); MCV 91.9 fL (80.0-100.0); MEAN PLATELET VOLUME 10.3 fL (7.4-10.4); MONOCYTES 10.9 % (2-11); NEUTROPHIL ABS# 3.95 10x3/uL (1.56-6.13); NEUTROPHILS 49.3 % (40-80); PLATELET COUNT 337 10x3/uL (130-400); RBC 3.97 10x6/uL (4.00-5.40); RDW 16.3 % (11.5-14.5)
[2020-12-11 08:14] VITALS: BP 126/81
[2020-12-11 11:49] VITALS: BP 140/62
[2020-12-11 21:53] VITALS: BP 141/87
--- NOTE | 2020-12-11 23:39 | NUR ---
MORPHINE 2MG SIVP GIVEN FOR C/O CP 06/06.
[2020-12-12 01:54] VITALS: BP 108/71
--- NOTE | 2020-12-12 02:34 | NUR ---
PT RESTING WITH EYES CLOSED. RESP EVEN AND REGULAR. CALL LIGHT WITHIN REACH.
--- NOTE | 2020-12-12 03:34 | NUR ---
MORPHINE 2MG SIVP GIVEN FOR C/O CP. CALL LIGHT WITHIN REACH.
--- NOTE | 2020-12-12 04:05 | NUR ---
ATCHING TV. NO DISTRESS NOTED. CALL LIGHT WITHIN REACH.
[2020-12-12 06:05] LABS: BASOPHILS 0.3 % (0-2); EOSINOPHILS 0 % (0-7); HEMATOCRIT 32.9 % (36.0-48.0); HEMOGLOBIN 10.6 g/dL (12-16); IMMATURE GRANULOCYTES 0.3 % (0-5); LYMPHOCYTE ABS# 0.64 10x3/uL (1.18-3.74); LYMPHOCYTES 10.6 % (15-50); MCH 28.7 pg (26.0-34.0); MCHC 32.2 g/dL (31.0-37.0); MEAN PLATELET VOLUME 10.3 fL (7.4-10.4); NEUTROPHIL ABS# 5.22 10x3/uL (1.56-6.13); NEUTROPHILS 86.8 % (40-80); PLATELET COUNT 335 10x3/uL (130-400); RBC 3.69 10x6/uL (4.00-5.40); RDW 15.5 % (11.5-14.5)
[2020-12-12 06:23] LABS: MCV 89.2 fL (80.0-100.0)
[2020-12-12 06:24] VITALS: BP 127/73
[2020-12-12 06:26] LABS: ALBUMIN 2.7 g/dL (3.4-5.0); ANION GAP 11.6 mmol/L (8-16); BILIRUBIN - TOTAL 0.47 mg/dL (0.2-1.3); CALCIUM 8.5 mg/dL (8.5-10.1); CARBON DIOXIDE 26.5 mmol/L (21.0-32.0); POTASSIUM - SERUM 4.1 mmol/L (3.5-5.1); PROTEIN - SERUM 6.4 g/dL (6.4-8.2)
--- NOTE | 2020-12-12 06:42 | NUR ---
VSS THROUGHOUT NGIHT. PT STATES PAIN MEDS DON'T REALLY ALLEVIATE HER PAIN. NEEDS MET; WILL CONTINUE TO MONITOR.
--- NOTE | 2020-12-12 07:00 | NUR ---
RECEIVED REPORT. ASSUMED CARE OF PATIENT. CALL LIGHT WITHIN REACH. PATIENT SITTING UP IN BED. BEDSIDE SHIFT REPORT COMPLETE, WHITE BOARD UPDATED. PATIENT COMPLAINS OF PAIN AND BEING SHORT OF BREATH WHEN COMPLETING SIMPLE ADLS SUCH A BRUSHING TEETH. DENIES NEEDS AT THIS TIME. NO DISTRESS.
[2020-12-12 07:14] LABS: IMMUNOGLOBULIN A 338 mg/dL (87-352); IMMUNOGLOBULIN G 1222 mg/dL (586-1602)
[2020-12-12 08:17] VITALS: BP 138/83
--- NOTE | 2020-12-12 08:30 | NUR ---
NEW ORDER TO RENEW MORPHINE.
[2020-12-12 12:48] VITALS: BP 132/79
--- NOTE | 2020-12-12 15:47 | NUR ---
22 GAUGE IV REMOVED FROM LEFT HAND/THUMB AREA DUE TO UNABLE TO FLUSH IV CATHETER. CATHETER TIP INTACT. NO BLEEDING FROM SITE. 2X2 GAUGE APPLIED AND SECURED WITH TAPE. 22 GAUGE IV PLACED TO LEFT LATERAL FA X 1 STICK, GOOD BLOOD RETURN, EASY FLUSH. TAPED DATED AND SECURED. PATIENT TOLERATED IV PLACEMENT WELL. NO DISTRESS. IV MERREM INFUSING AT THIS TIME.
[2020-12-12 16:37] VITALS: BP 115/64
[2020-12-12 18:08] LABS: ANA REFLEX - DIRECT Negative (Negative)
--- NOTE | 2020-12-12 18:31 | NUR ---
MEDICATED FOR PAIN AND NAUSEA AT THIS TIME. NO DISTRESS.
--- NOTE | 2020-12-12 19:44 | NUR ---
INITIAL ROUNDS COMPLETED. PT DENIED ANY DISCOMFORT. CALL LIGHT WITHIN REACH.
[2020-12-12 20:30] VITALS: BP 127/77
--- NOTE | 2020-12-12 21:33 | NUR ---
ASSESSMENT COMPLETED A 1954HRS. VSS. ALERT AND ORIENTED TO PERSON,PLACE AND TIME. ROBIN. IV TOLFA SL. O2 2LNC. LUNGS DIMINISHED BILAT. PALPABLE PERIPHERAL PULSES. PM MEDS GIVEN. CALL LIGHT WITHIN REACH.
--- NOTE | 2020-12-12 22:42 | NUR ---
MORPHINE 2MG, ZOFRAN 4MG SIVP GIVEN FOR C/O CP AT 2130 HRS.
--- NOTE | 2020-12-13 00:22 | NUR ---
ATIVAN 0.5MG PO GIVEN FOR C/O ANXIETY.
[2020-12-13 01:56] VITALS: BP 134/76
--- NOTE | 2020-12-13 02:10 | NUR ---
PT RESTING WITH EYES CLOSED. RESP EVEN AND REGULAR. CALL LIGHT WITHIN REACH.
--- NOTE | 2020-12-13 04:04 | NUR ---
PT RESTING WITH EYES CLOSED. RESP EVEN AND REGULAR. CALL LIGHT WITHIN REACH.
--- NOTE | 2020-12-13 04:33 | NUR ---
MORPHINE 2MG, ZOFRAN 4MG SIVP GIVEN FOR C/O CP 05/07.
[2020-12-13 05:48] VITALS: BP 123/89
--- NOTE | 2020-12-13 05:51 | NUR ---
VSS THROUGHOUT NIGHT. PT RESTED WELL AFTER ATIVAN ADMINISTRATION. NEEDS MET;WILL CONTINUE TO MONITOR.
[2020-12-13 06:08] LABS: BASOPHILS 0.1 % (0-2); EOSINOPHILS 0 % (0-7); HEMATOCRIT 33.7 % (36.0-48.0); HEMOGLOBIN 10.9 g/dL (12-16); IMMATURE GRANULOCYTES 0.3 % (0-5); LYMPHOCYTE ABS# 0.65 10x3/uL (1.18-3.74); LYMPHOCYTES 3.7 % (15-50); MCH 29.1 pg (26.0-34.0); MCHC 32.3 g/dL (31.0-37.0); MCV 89.9 fL (80.0-100.0); MEAN PLATELET VOLUME 10.3 fL (7.4-10.4); MONOCYTES 4.5 % (2-11); NEUTROPHIL ABS# 16.17 10x3/uL (1.56-6.13); NEUTROPHILS 91.4 % (40-80); PLATELET COUNT 380 10x3/uL (130-400); RBC 3.75 10x6/uL (4.00-5.40); RDW 15.8 % (11.5-14.5)
[2020-12-13 06:26] LABS: WBC 17.7 10x3/uL (4.8-10.8)
[2020-12-13 06:43] LABS: ALBUMIN 2.9 g/dL (3.4-5.0); ANION GAP 12.1 mmol/L (8-16); BILIRUBIN - TOTAL 0.33 mg/dL (0.2-1.3); CALCIUM 8.7 mg/dL (8.5-10.1); CARBON DIOXIDE 27.4 mmol/L (21.0-32.0); CREATININE - SERUM 1.1 mg/dL (0.6-1.3); POTASSIUM - SERUM 4.5 mmol/L (3.5-5.1); PROTEIN - SERUM 6.9 g/dL (6.4-8.2)
--- NOTE | 2020-12-13 07:00 | NUR ---
RECEIVED REPORT. ASSUMED CARE OF PATIENT. CALL LIGHT WITHIN REACH. BEDSIDE SHIFT REPORT COMPLETE. WHITE BOARD UPDATED. PATIENT SITTING UP IN BED PERFORMING MORNING ADLS. DENIES NEEDS. NO DISTRESS. STATES SHE SLEPT WELL LAST NIGHT AFTER RECIEVING ATIVAN FOR ANXIETY.
[2020-12-13 08:47] VITALS: BP 137/80
[2020-12-13 12:16] VITALS: BP 139/89
--- NOTE | 2020-12-13 12:54 | NUR ---
MEDICATED FOR PAIN AND NAUSEA AT THIS TIME. NO DISTRESS.
[2020-12-13 16:22] VITALS: BP 140/84
--- NOTE | 2020-12-13 17:25 | NUR ---
MEDICATED FOR PAIN AND NAUSEA AT THIS TIME. CALL LIGHT WITHIN REACH. NO DISTRESS. DENIES ANY FURTHER NEEDS AT THIS TIME.
[2020-12-13 21:58] VITALS: BP 138/87
--- NOTE | 2020-12-13 22:50 | NUR ---
UPON ENTERING PATIENT ROOM NOTED PATIENT ON TELEPHONE. PATIENT LOOKED AT ME AND STATED THAT IT WASNT A GOOD TIME. RETURNED TO PATIENT LATER (APPROX. 1 HR LATER) PATIENT IS STILL REFUSING. RETURNED AGAIN AT 2245 AND PATIENT STILLING REFUSING TREATMENT.
--- NOTE | 2020-12-14 00:02 | NUR ---
INITIAL ORUNDS COMPLETED AT 1915 HRS. PT IN SHOWER. ASSESSMENT COMPLETED AT 1930 HRS. VSS. ALERT AND ORIENTED TO PERSON, PLACE AND TIME. ROBIN. PALPABLE PERIPHERAL PULSES. LUNGS DIMINISHED IN BASES BILAT. O2 2LNC. IV TO LFA SL. BRUISES NOTED TO BILAT ARMS. PM MEDS GIVEN ORDERED. MORPHINE 2MG, ZOFRAN 4MG SIVP GIVEN AT 2153 FOR C/O CP. IV OUT AT 2320 HRS WITH CATHETER INTACT. NEW IV STARTED #22 TO INNER R FA WIHT ATTEMPT X1. PT TOLERATED ACTIVITY WELL. ATIVAN 0.5MG PO GIVEN AT THAT TIME FOR C/O ANXIETY. CALL LIGHT WITHIN REACH.
[2020-12-14 02:07] VITALS: BP 126/79
--- NOTE | 2020-12-14 04:31 | NUR ---
MORPHNE 2MG, ZOFRAN 4MG SIVO GIVEN FOR C/O CP 06/06. CALL LIGHT WITHIN REACH.
[2020-12-14 05:27] VITALS: BP 117/86
[2020-12-14 06:07] VITALS: BP 181/75
[2020-12-14 06:31] LABS: BASOPHILS 0.1 % (0-2); EOSINOPHILS 0 % (0-7); HEMATOCRIT 32.8 % (36.0-48.0); HEMOGLOBIN 10.3 g/dL (12-16); IMMATURE GRANULOCYTES 0.3 % (0-5); LYMPHOCYTE ABS# 0.89 10x3/uL (1.18-3.74); LYMPHOCYTES 5.9 % (15-50); MCH 28.5 pg (26.0-34.0); MCHC 31.4 g/dL (31.0-37.0); MCV 90.6 fL (80.0-100.0); MEAN PLATELET VOLUME 10.3 fL (7.4-10.4); NEUTROPHIL ABS# 13.35 10x3/uL (1.56-6.13); NEUTROPHILS 88.7 % (40-80); PLATELET COUNT 363 10x3/uL (130-400); RBC 3.62 10x6/uL (4.00-5.40); RDW 16.1 % (11.5-14.5); WBC 15.1 10x3/uL (4.8-10.8)
[2020-12-14 06:51] LABS: ALBUMIN 2.8 g/dL (3.4-5.0); ANION GAP 12.8 mmol/L (8-16); BILIRUBIN - TOTAL 0.3 mg/dL (0.2-1.3); CALCIUM 8.5 mg/dL (8.5-10.1); CARBON DIOXIDE 28.6 mmol/L (21.0-32.0); CREATININE - SERUM 1.1 mg/dL (0.6-1.3); POTASSIUM - SERUM 4.4 mmol/L (3.5-5.1); PROTEIN - SERUM 6.6 g/dL (6.4-8.2)
[2020-12-14 08:17] VITALS: BP 144/81
--- NOTE | 2020-12-14 08:32 | NUR ---
ASSISTED PT TO SIT UP IN BED, PT REPORTS TO BE ANXIOUS, PRN MEDICATION GIVEN. O2 IN PLACE VIA NC. AM MEDS HELD UNTIL AFTER SCHEDULED EGD. PT DENIES ANY NEEDS AT THIS TIME. CLWR.
--- NOTE | 2020-12-14 09:07 | NUR ---
PT REQUESTED HER HEART AND BREATHING MEDICATION AT THIS TIME. 4 MEDICATIONS SHE REQUESTED GIVEN D/T PT STATES SHE IS ANXOUS MAKING HER FEARS WORSE AND WOULD FEEL BETTER TAKING HER MEDICATIONS. GIVEN WITH SIP OF WATER. PT ASSISTED TO AND FROM RESTROOM. NO FURTHER NEEDS VOICED. CLWR.
--- NOTE | 2020-12-14 09:55 | NUR ---
GI LAB CALLED NURSE AND MD HAS CANCELLED PROCEDURE TODAY PER GI LAB NURSE. PT ANXIOUS, AM MEDS GIVEN, FRESH COKE PLACED AT BEDSIDE. PT REQUESTED PRN BREATHING TX, NOTIFIED RT. NO FURTHER NEEDS VOICED. CLWR.
--- NOTE | 2020-12-14 11:16 | NUR ---
ATTEMPTED TO CALL PT SON PER REQUEST ON HER CELL PGONE, NO ANSWER AT THIS TIME, NO FURTHER NEEDS VOICED. CLWR.
[2020-12-14 12:02] VITALS: BP 105/91
[2020-12-14 13:10] LABS: IGG SUBCLASS 1 679 mg/dL (248-810); IGG SUBCLASS 2 297 mg/dL (130-555); IGG SUBCLASS 3 40 mg/dL (15-102); IGG SUBCLASS 4 111 mg/dL (2-96); IGGS - IGG SERUM 1180 mg/dL (586-1602)
--- NOTE | 2020-12-14 13:14 | NUR ---
Nutrition Reassessment/Follow-up: NPO for EGD this AM, although noted procedure cancelled 2/2 pt not comfortable with proceeding. ST following; eval reports oropharyngeal dysphagia & s/s of esophageal dysphagia. Diet: Cardiac, Mech Soft, chocolate Ensure with lunch, snacks between meals PO intake: 75% x 3 meals yesterday No new wt; last wt: 100# (12/07) Labs noted: Glu 107, Alb 2.8 Meds noted: Florajen, Zofran, Solumedrol, Colace, Carafate, Bumex, Micro K, electrolyte protocol -Nutrition needs unchanged since initial assessment; no new wt available. -Encourage PO intake and honor food preferences within diet restrictions. -Need new wt. -RD will follow up within 3-4 days if pt still admitted.
[2020-12-14 16:09] LABS: IMMUNOGLOBULIN E 2222 IU/mL (6-495)
[2020-12-14 16:25] VITALS: BP 151/91
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
[2020-12-15 05:38] LABS: BASOPHILS 0.1 % (0-2); EOSINOPHILS 0 % (0-7); HEMATOCRIT 38.6 % (36.0-48.0); IMMATURE GRANULOCYTES 0.3 % (0-5); LYMPHOCYTE ABS# 1.02 10x3/uL (1.18-3.74); LYMPHOCYTES 7.1 % (15-50); MCH 29.1 pg (26.0-34.0); MCHC 32.4 g/dL (31.0-37.0); MCV 89.8 fL (80.0-100.0); MEAN PLATELET VOLUME 10.5 fL (7.4-10.4); MONOCYTES 8.5 % (2-11); NEUTROPHIL ABS# 12.09 10x3/uL (1.56-6.13); PLATELET COUNT 417 10x3/uL (130-400); RDW 16.3 % (11.5-14.5); WBC 14.4 10x3/uL (4.8-10.8)
[2020-12-15 05:42] LABS: HEMOGLOBIN 12.5 g/dL (12-16)
[2020-12-15 06:19] LABS: ALBUMIN 3.5 g/dL (3.4-5.0); ANION GAP 17.6 mmol/L (8-16); BILIRUBIN - TOTAL 0.85 mg/dL (0.2-1.3); CALCIUM 9.5 mg/dL (8.5-10.1); CARBON DIOXIDE 25.9 mmol/L (21.0-32.0); CREATININE - SERUM 1.1 mg/dL (0.6-1.3); POTASSIUM - SERUM 4.5 mmol/L (3.5-5.1); PROTEIN - SERUM 7.4 g/dL (6.4-8.2)
[2020-12-15 07:00] VITALS: BP 134/86
--- NOTE | 2020-12-15 08:36 | NUR ---
ROUNDING DONE WITH PATIENT CALLING US INTO THE ROOM X 5 THIS SHIFT SO FAR. ON 3L PER NC. RIGHT FA SEEN PIV WITH NS INFUSING AT 75 CC/HR. GLASSES ON. BSC IN USE. PATIENT TO GET SHORT OF BREATH WITH MOVEMENT. WILL MONITOR.
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
--- NOTE | 2020-12-15 09:55 | NUR ---
PATIENT WANTS TO HAVE HEART MONITOR PLACED. PAGE INTO TAYLA NAOIM LEACH WHO REVIEWED CHART AND STATES TO HAVE LAB DONE AT THIS TIME. PLACED ORDER FOR THIS. PRN ATIVAN GIVEN.
--- NOTE | 2020-12-15 10:36 | NUR ---
CRITICAL TROP RESULT OF 0.096 CALLED. THIS IS SHOWN TO TAYLA, ENVIRONMENTAL SERVICES LEAD ON THE FLOOR WITH NO NEW ORDERS.
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
[2020-12-15 11:30] VITALS: BP 130/84
--- NOTE | 2020-12-15 11:42 | NUR ---
1130-PLACED ON HEART MONITOR, SHOWS ST, HR 104.
--- NOTE | 2020-12-15 11:44 | NUR ---
CALLED TO ROOM WITH "IT'S DOING IT AGAIN". CALLED ICU TELEMENTRY AND MONITOR SHOWS ST, HR 103.
[2020-12-15 16:00] VITALS: BP 116/83
--- NOTE | 2020-12-15 18:44 | NUR ---
CALLED TO ROOM WITH COMPLAINTS OF CHEST PAIN. I CALLED ROLL REPAIRER AND HR 107, ST.
--- NOTE | 2020-12-15 19:28 | NUR ---
RECIEVED SITTING UP IN BED. ALERT AND ORIENTED X4. REQUIRES ASSIST TO TRANSFER FROM BED TO BEDSIDECOMMODE. DENIES ANY NEEDS AT THIS TIME.
[2020-12-15 20:00] VITALS: BP 109/77
[2020-12-16] VITALS: BP 127/76
[2020-12-16 04:00] VITALS: BP 119/84
[2020-12-16 05:50] LABS: BASOPHILS 0.1 % (0-2); EOSINOPHILS 0 % (0-7); HEMATOCRIT 37.5 % (36.0-48.0); HEMOGLOBIN 12.2 g/dL (12-16); IMMATURE GRANULOCYTES 0.3 % (0-5); LYMPHOCYTE ABS# 0.69 10x3/uL (1.18-3.74); LYMPHOCYTES 4.7 % (15-50); MCH 28.8 pg (26.0-34.0); MCHC 32.5 g/dL (31.0-37.0); MCV 88.4 fL (80.0-100.0); MEAN PLATELET VOLUME 10.8 fL (7.4-10.4); MONOCYTES 7.3 % (2-11); NEUTROPHIL ABS# 12.76 10x3/uL (1.56-6.13); NEUTROPHILS 87.6 % (40-80); PLATELET COUNT 431 10x3/uL (130-400); RBC 4.24 10x6/uL (4.00-5.40); WBC 14.6 10x3/uL (4.8-10.8)
[2020-12-16 06:29] LABS: ALBUMIN 3.4 g/dL (3.4-5.0); ANION GAP 14.8 mmol/L (8-16); BILIRUBIN - TOTAL 0.79 mg/dL (0.2-1.3); CALCIUM 9.3 mg/dL (8.5-10.1); CARBON DIOXIDE 27.5 mmol/L (21.0-32.0); CREATININE - SERUM 1.3 mg/dL (0.6-1.3); POTASSIUM - SERUM 4.3 mmol/L (3.5-5.1); PROTEIN - SERUM 7.1 g/dL (6.4-8.2)
[2020-12-16 08:35] VITALS: BP 132/93
[2020-12-16 11:46] VITALS: BP 126/85
[2020-12-16 16:25] VITALS: BP 118/82
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
--- NOTE | 2020-12-16 20:17 | NUR ---
ASSESSMENT PER FLOW SHEET, VS OBTAINED, SALINE LOCK IN RIGHT WRIST AREA INTACT WITH NO REDNESS OR EDEMA, ADM 2000 MED PER MD ORDERS, EMPTIED BEDSIDE COMMODE, URINE AND STOOL NOTED, TELEMETRY IN PLACE, FRESH H20 SERVED, DINNER TRAY REMOVED
--- NOTE | 2020-12-16 20:46 | NUR ---
ADM 2100 MEDS PER MD ORDERS, SEE EMAR, PT C/O NAUSEA, UPON FLUSHING SALINE LOCK, SALINE LOCK NOTED TO START LEAKING AROUND SITE, NO LONGER PATENT, SALINE LOCK REMOVED, UNABLE TO GET AN IV AT THIS TIME, WILL HAVE CHARGE NURSE ATTEMPT TO START ONE, INFORMED PT THAT I WILL EITHER ADM ZOFRAN IV WHEN IV IS STARTED OR SEE ABOUT ADM ZOFRAN ODT, PT VERBALIZES UNDERSTANDING, BED IN LOW POSITION, SIDE RAILS
--- NOTE | 2020-12-16 21:23 | NUR ---
PAGED RUSTY RILEY, ACADEMIC DEAN
[2020-12-16 21:26] VITALS: BP 130/86
--- NOTE | 2020-12-16 21:44 | NUR ---
RUSTY RILEY APRN CALLS UNIT, REPORT OF IV NOT LONGER PATENT AND PT'S C/O NAUSEA, ORDERS RECEIVED FOR ZOFRAN 4MG ODT Q4H FOR NAUSEA, ORDERS READ BACK AND VERIFIED
--- NOTE | 2020-12-16 22:09 | NUR ---
ADM MATTI ODT PER MD ORDERS, SEE EMAR
--- NOTE | 2020-12-16 23:20 | NUR ---
PT REPORTS SHE FEELS LIKE SHE NEEDS A RESP TREATMENT, WILL NOTIFY RESP
--- NOTE | 2020-12-16 23:24 | NUR ---
RESP TO ROOM FOR TREATMENT
--- NOTE | 2020-12-16 23:42 | NUR ---
RUSTY RILEY APRN ON UNIT, REPORT OF PT'S C/O OF DIFFICULTY BREATHING, RESP IN ROOM FOR TREATMENT, 02 SAT 100%, PT ALSO REPORTS ANXIETY, RUSTY RILEY APRN LOOKS OVER PT'S RECORD, SEE EMAR ORDERS
[2020-12-17] VITALS: BP 124/85
--- NOTE | 2020-12-17 00:12 | NUR ---
PT AWAKE, ADM ATIVAN PER MD ORDERS, SEE EMARODALYS, RN TO ROOM TO START IV
--- NOTE | 2020-12-17 00:38 | NUR ---
ODALYS BLAKE, RN REPORTS SHE STARTED IV IN UPPER LEFT ARM WITH A 22 GAUGE, FIRST ATTEMPT, IV SALINE LOCKED, FLUSHED WITH NO DIFFICULTY
--- NOTE | 2020-12-17 02:23 | NUR ---
PT SITTING UP IN BED, REFUSES TO PUT O2 BACK ON, REPORTS ANXIETY IS BETTER, DENIES NEEDS AT THIS TIME, BED IN LOW POSITION, SIDE RAILS X 2, CALL LIGHT IN REACH
[2020-12-17 04:00] VITALS: BP 132/85
--- NOTE | 2020-12-17 04:30 | NUR ---
PT DIGITAL SALES MANAGER LIGHT, C/O NAUSEA, SALINE LOCK FLUSHED, ADM ZOFRAN, DILUTED IN 5MLS OF NS, SLOW IV PUSH OVER 3 MINUTES, SALINE LOCK FLUSHED, PT AMADOR WELL, PT STATES "THANK YOU", DENIES FURTHER NEEDS, BED IN LOW POSITION, SIDE RAILS X 2, CALL LIGHT IN REACH
--- NOTE | 2020-12-17 04:46 | NUR ---
PT TYPESETTERS PRINTER LIGHT, PT REQUESTED AND SERVED ICE CHIPS, ENC PT TO PUT O2 BACK ON, PT AGREED, PT DENIES FURTHER NEEDS, BED IN LOW POSITION, SIDE RAILS X 2, CALL LIGHT IN REACH
--- NOTE | 2020-12-17 05:05 | NUR ---
DEVELOPMENTAL TRAINING COUNSELOR IN ROOM TO OBTAIN VS
--- NOTE | 2020-12-17 07:00 | NUR ---
SHIFT REPORT TO DAY SHIFT NURSE
--- NOTE | 2020-12-17 07:15 | NUR ---
AM ROUNDS COMPLETED, RESIDENT ASKING FOR HELP, SHORT OF BREATH O2 IN USE AT 3L. ASKED PATIENT TO FOLLOW MY DIRECTIONS AND BREATH DEEPLY, EXHALE, AND REPEAT SEVERAL TIMES. RESPIRATIONS LOWERED FROM 26 TO 18 AFTER 2 MINUTE EXERCISE. ASSISTED PATIENT WITH EMPTING BEDSIDE COMMODE. RESIDENT COMPLAINED OF NAUSEA. EXPLAINED ZOFRAN WAS NOT DUE UNTIL 830A, PATIENT VERBALIZED UNDERSTANDING.
[2020-12-17 08:09] VITALS: BP 123/87
[2020-12-17 09:04] LABS: ANION GAP 14.6 mmol/L (8-16); CALCIUM 8.8 mg/dL (8.5-10.1); CARBON DIOXIDE 27.2 mmol/L (21.0-32.0); CREATININE - SERUM 1.4 mg/dL (0.6-1.3); POTASSIUM - SERUM 3.8 mmol/L (3.5-5.1)
[2020-12-17 09:11] LABS: BILIRUBIN - TOTAL 0.81 mg/dL (0.2-1.3); PROTEIN - SERUM 6.7 g/dL (6.4-8.2)
[2020-12-17 09:19] LABS: BASOPHILS 0.1 % (0-2); EOSINOPHILS 0 % (0-7); HEMATOCRIT 37.2 % (36.0-48.0); IMMATURE GRANULOCYTES 0.5 % (0-5); LYMPHOCYTE ABS# 1.69 10x3/uL (1.18-3.74); LYMPHOCYTES 10.1 % (15-50); MCH 28.6 pg (26.0-34.0); MCHC 32.3 g/dL (31.0-37.0); MCV 88.6 fL (80.0-100.0); MEAN PLATELET VOLUME 10.7 fL (7.4-10.4); MONOCYTES 4.2 % (2-11); NEUTROPHIL ABS# 14.26 10x3/uL (1.56-6.13); NEUTROPHILS 85.1 % (40-80); PLATELET COUNT 427 10x3/uL (130-400); RDW 16.1 % (11.5-14.5); WBC 16.8 10x3/uL (4.8-10.8)
[2020-12-17] MEDS ORDERED: PREDNISONE10 MG PO (10:13)
[2020-12-17] MEDS ORDERED: SINGULAIR10 MG PO (10:13)
[2020-12-17] MEDS ORDERED: ADOXA100 MG PO (10:15)
--- NOTE | 2020-12-17 11:38 | NUR ---
NEW DISCHARGE ORDERS ACKNOWLEDGED. RESIDENT COMPLAINED OF PAIN, 8 OUT OF 10 ON NUMERIC SCALE. PRN TRAMADOL ADMINISTERED ORDERED.
[2020-12-17 12:00] VITALS: BP 130/80
--- NOTE | 2020-12-17 12:03 | NUR ---
CALLED REPORT TO THE [facility], GAVE REPORT TO ROYA, HARD SCRIPTS FOR NARCS REQUESTED.
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
--- NOTE | 2020-12-17 14:10 | NUR ---
PATIENT DISCHARGED TO THE [facility]. [employer] VAN ARRIVED FOR DATABASE OPERATOR. PATIENT LEFT FACILITY AT 210PM. DISCHARGE PAPERWORK SIGNED BY PATIENT. ORDERS AND PATIENT INFORMATIN GIVEN TO ACADEMIC REGISTRAR.
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
== END 2020-12-17 14:20 | DRG 250 ==
LOC: D.ER 16:29 → OBSVTIME 18:16 → D.M2 18:16
PROVIDERS: Emergency Medicine; Family Medicine; Internal Medicine Interventional Cardiology; Internal Medicine Pulmonary Disease; ADMIT Emergency Medicine; ATTEND Emergency Medicine
PROC: B2111ZZ Fluoroscopy of Multiple Coronary Arteries using Low Osmolar Contrast (ICD-10-PCS; 2020-12-07)
PROC: B2151ZZ Fluoroscopy of Left Heart using Low Osmolar Contrast (ICD-10-PCS; 2020-12-07)
PROC: 02703ZZ Dilation of Coronary Artery, One Artery, Percutaneous Approach (ICD-10-PCS; principal; 2020-12-07 10:00)
PROC: 4A023N7 Measurement of Cardiac Sampling and Pressure, Left Heart, Percutaneous Approach (ICD-10-PCS; 2020-12-07 10:00)
DX: T82.855A Stenosis of coronary artery stent, initial encounter (principal); I50.23 Acute on chronic systolic (congestive) heart failure; E43 Unspecified severe protein-calorie malnutrition; J15.6 Pneumonia due to other Gram-negative bacteria; J15.212 Pneumonia due to Methicillin resistant Staphylococcus aureus; Z68.1 Body mass index [BMI] 19.9 or less, adult; J47.0 Bronchiectasis with acute lower respiratory infection; Y83.9 Surgical procedure, unspecified as the cause of abnormal reaction of the patient, or of later complication, without mention of misadventure at the time of the procedure; I25.10 Atherosclerotic heart disease of native coronary artery without angina pectoris; E78.5 Hyperlipidemia, unspecified; F32.9 Major depressive disorder, single episode, unspecified; I25.5 Ischemic cardiomyopathy; I11.0 Hypertensive heart disease with heart failure; Z72.0 Tobacco use; Z87.01 Personal history of pneumonia (recurrent)

== ENCOUNTER 2020-12-18 00:15 | Inpatient (IN) | payer MEDICARE ==
[~2020-12-18] VITALS: Ht 160 cm; Wt 49.9 kg
[~2020-12-18 00:15] MED LIST changes: +PREDNISONE10 MG PO; +SINGULAIR10 MG PO
[2020-12-18 01:05] LABS: BASOPHILS 0 % (0-2); EOSINOPHILS 0 % (0-7); HEMATOCRIT 35.6 % (36.0-48.0); HEMOGLOBIN 11.8 g/dL (12-16); IMMATURE GRANULOCYTES 0.6 % (0-5); LYMPHOCYTE ABS# 1.34 10x3/uL (1.18-3.74); LYMPHOCYTES 8.3 % (15-50); MCH 28.9 pg (26.0-34.0); MCHC 33.1 g/dL (31.0-37.0); MEAN PLATELET VOLUME 10.6 fL (7.4-10.4); MONOCYTES 10.6 % (2-11); NEUTROPHIL ABS# 13.01 10x3/uL (1.56-6.13); NEUTROPHILS 80.5 % (40-80); PLATELET COUNT 403 10x3/uL (130-400); RBC 4.09 10x6/uL (4.00-5.40); RDW 15.9 % (11.5-14.5); WBC 16.2 10x3/uL (4.8-10.8)
[2020-12-18 01:16] LABS: CALC OSMOLALITY 289 mosm/kg (275-300); CALCIUM 8.5 mg/dL (8.5-10.1); CARBON DIOXIDE 28.1 mmol/L (21.0-32.0); CHLORIDE - SERUM 99 mmol/L (98-107); CREATININE - SERUM 1.3 mg/dL (0.6-1.3); GLUCOSE 110 mg/dL (74-106); POTASSIUM - SERUM 3.9 mmol/L (3.5-5.1); SODIUM 137 mmol/L (136-145); UREA NITROGEN 55 mg/dL (7-18); eGFR NON AFRICAN AMERICAN 43 mL/min (90-120)
[2020-12-18 01:17] LABS: APTT 31.2 SECONDS (22.8-39.4); INR 1.45 (0.85-1.17); PROTIME 16.3 SECONDS (11.6-15.0)
[2020-12-18 01:34] LABS: ALBUMIN 2.9 g/dL (3.4-5.0); ALKALINE PHOSPHATASE 136 U/L (30-120); ALT (SGPT) 510 U/L (10-68); BILIRUBIN - TOTAL 0.62 mg/dL (0.2-1.3); CKMB 2.3 U/L (0.0-3.6); CREATINE KINASE 69 UL (21-215); MAGNESIUM - SERUM 2.4 mg/dL (1.8-2.4); PROTEIN - SERUM 6.5 g/dL (6.4-8.2); TROPONIN-I 0.058 ng/mL (0.000-0.060)
[2020-12-18 01:35] LABS: PRO BNP 72522 pg/mL (0-125)
[2020-12-18 01:47] LABS: BILIRUBIN NEGATIVE (NEGATIVE); KETONE NEGATIVE (NEGATIVE); NITRITE NEGATIVE (NEGATIVE); UROBILINOGEN NORMAL mg/dL (< 2)
[2020-12-18 01:49] LABS: BACTERIA FEW HPF (NONE SEEN); SQUAMOUS EPITHELIAL 0-5 HPF (0-4); WHITE CELLS - URINE 0-5 HPF (0-4)
[2020-12-18 01:56] LABS: BILIRUBIN - DIRECT 0.25 mg/dL (0.00-0.30); BILIRUBIN - INDIRECT 0.39 mg/dL (0.00-1.00); BILIRUBIN - TOTAL 0.64 mg/dL (0.2-1.3); PROTEIN - SERUM 6.6 g/dL (6.4-8.2)
[2020-12-18 02:46] VITALS: BP 133/92
[2020-12-18 05:41] VITALS: BP 113/79
--- NOTE | 2020-12-18 07:15 | NUR ---
PATIENT SITTING UP APPROX AT 90 DEGREES IN BED. STILL REPORTS SOB. SATS 100% ON 2L. SCHEDULED NEBS DUE AT THIS TIME.
--- NOTE | 2020-12-18 07:46 | NUR ---
ALERT AND ORIENTED. ASSESSMENT COMPLETE. DENIES NEEDS. BED LOW. CALL ESPAÑA AND PERSONAL ITEMS IN REACH. WILL CONTINUE TO MONITOR.
--- NOTE | 2020-12-18 08:03 | NUR ---
ASSISTED TO BEDPAN. LINENS SOILED WITH URINE. CHANGED BED LINENS AND WARM BLANKETS GIVEN PER REQUEST. DENIES FURTHER NEEDS. CALL ESPAÑA IN REACH.
[2020-12-18 10:42] VITALS: BP 116/71
--- NOTE | 2020-12-18 11:45 | NUR ---
PATIENT REQUESTING DE OLIVEIRA EVEN THOUGH IS ABLE TO GET UP AND WALK TO BATHROOM. WANTS DE OLIVEIRA D/T SOB ON EXERTION. PUREWICK PLACED ON PATIENT. EDUCATION PROVIDED.
[2020-12-18 13:29] VITALS: BP 138/82
--- NOTE | 2020-12-18 13:47 | NUR ---
PATIENT ASSISSTED TO CHAIR AT BEDSIDE PER REQUEST.
[2020-12-18 14:01] VITALS: Ht 160 cm; Wt 49.9 kg
[2020-12-18 17:41] VITALS: BP 117/75
[2020-12-18 20:35] VITALS: BP 109/68
--- NOTE | 2020-12-18 23:39 | NUR ---
I have reviewed this patient and I concur with the Shift Assessment completed by the Licensed Practical Nurse today this shift.
[2020-12-19 01:01] VITALS: BP 123/72
[2020-12-19 05:53] VITALS: BP 108/75
[2020-12-19 06:46] LABS: BASOPHILS 0.1 % (0-2); EOSINOPHILS 0.1 % (0-7); HEMATOCRIT 35.7 % (36.0-48.0); HEMOGLOBIN 11.7 g/dL (12-16); IMMATURE GRANULOCYTES 0.7 % (0-5); LYMPHOCYTE ABS# 1.29 10x3/uL (1.18-3.74); LYMPHOCYTES 8.8 % (15-50); MCH 28.6 pg (26.0-34.0); MCHC 32.8 g/dL (31.0-37.0); MCV 87.3 fL (80.0-100.0); MEAN PLATELET VOLUME 10.9 fL (7.4-10.4); MONOCYTES 9.6 % (2-11); NEUTROPHIL ABS# 11.84 10x3/uL (1.56-6.13); NEUTROPHILS 80.7 % (40-80); PLATELET COUNT 389 10x3/uL (130-400); RBC 4.09 10x6/uL (4.00-5.40); RDW 15.8 % (11.5-14.5); WBC 14.7 10x3/uL (4.8-10.8)
[2020-12-19 07:12] LABS: ALBUMIN 2.5 g/dL (3.4-5.0); BILIRUBIN - TOTAL 0.54 mg/dL (0.2-1.3); CALCIUM 8.4 mg/dL (8.5-10.1); CREATININE - SERUM 1.2 mg/dL (0.6-1.3); PROTEIN - SERUM 5.8 g/dL (6.4-8.2)
[2020-12-19 07:21] LABS: ANION GAP 11.1 mmol/L (8-16); POTASSIUM - SERUM 3.1 mmol/L (3.5-5.1)
--- NOTE | 2020-12-19 07:33 | NUR ---
RECIEVED BEDSIDE REPORT. UP IN CHAIR. CALL LIGHT IN REACH. NON SLIP SOCKS ON. NASAL CANNULA IN PLACE. WILL CONTINUE TO MONITOR.
[2020-12-19 08:52] VITALS: BP 106/63
[2020-12-19 11:45] VITALS: BP 113/69
--- NOTE | 2020-12-19 15:36 | NUR ---
UP IN CHAIR. DENIES NEEDS AT THIS TIME. WILL CONTINUE TO MONITOR.
[2020-12-19 16:50] VITALS: BP 94/59
--- NOTE | 2020-12-19 21:58 | NUR ---
UP IN CHAIR AT BEDSIDE. RESP UNALBORED. O2 @ 2L PER NC ON. SL TO RFA INTACT WITHOUT REDNESS OR EDEMA NOTED.CL IN REACH
--- NOTE | 2020-12-20 00:38 | NUR ---
I have reviewed this patient and I concur with the Shift Assessment completed by the Licensed Practical Nurse today this shift.
[2020-12-20 05:25] LABS: BASOPHILS 0.1 % (0-2); EOSINOPHILS 0.2 % (0-7); IMMATURE GRANULOCYTES 0.9 % (0-5); LYMPHOCYTE ABS# 1.25 10x3/uL (1.18-3.74); LYMPHOCYTES 11.2 % (15-50); MCH 27.6 pg (26.0-34.0); MCHC 31.4 g/dL (31.0-37.0); MCV 87.9 fL (80.0-100.0); MONOCYTES 11.9 % (2-11); NEUTROPHILS 75.7 % (40-80); PLATELET COUNT 390 10x3/uL (130-400); RBC 3.98 10x6/uL (4.00-5.40); RDW 15.8 % (11.5-14.5); WBC 11.2 10x3/uL (4.8-10.8)
[2020-12-20 05:48] LABS: ALBUMIN 2.4 g/dL (3.4-5.0); ANION GAP 10.7 mmol/L (8-16); BILIRUBIN - TOTAL 0.42 mg/dL (0.2-1.3); CALCIUM 8.4 mg/dL (8.5-10.1); CARBON DIOXIDE 29.8 mmol/L (21.0-32.0); CREATININE - SERUM 1.3 mg/dL (0.6-1.3); MAGNESIUM - SERUM 1.9 mg/dL (1.8-2.4); POTASSIUM - SERUM 3.5 mmol/L (3.5-5.1); PROTEIN - SERUM 5.4 g/dL (6.4-8.2)
[2020-12-20 10:56] VITALS: BP 114/72
[2020-12-20 14:36] VITALS: BP 95/57
[2020-12-20 17:43] VITALS: BP 134/83
[2020-12-21 06:03] LABS: BASOPHILS 0.1 % (0-2); EOSINOPHILS 0.8 % (0-7); HEMATOCRIT 34.8 % (36.0-48.0); HEMOGLOBIN 11.1 g/dL (12-16); IMMATURE GRANULOCYTES 1.1 % (0-5); LYMPHOCYTE ABS# 1.98 10x3/uL (1.18-3.74); MCHC 31.9 g/dL (31.0-37.0); MCV 87.7 fL (80.0-100.0); MEAN PLATELET VOLUME 10.7 fL (7.4-10.4); MONOCYTES 10.7 % (2-11); NEUTROPHIL ABS# 7.13 10x3/uL (1.56-6.13); NEUTROPHILS 68.3 % (40-80); PLATELET COUNT 408 10x3/uL (130-400); RBC 3.97 10x6/uL (4.00-5.40); WBC 10.4 10x3/uL (4.8-10.8)
[2020-12-21 06:36] LABS: ALBUMIN 2.5 g/dL (3.4-5.0); ANION GAP 11.5 mmol/L (8-16); BILIRUBIN - TOTAL 0.46 mg/dL (0.2-1.3); CALCIUM 8.4 mg/dL (8.5-10.1); CARBON DIOXIDE 29.8 mmol/L (21.0-32.0); CREATININE - SERUM 1.4 mg/dL (0.6-1.3); MAGNESIUM - SERUM 1.8 mg/dL (1.8-2.4); POTASSIUM - SERUM 3.3 mmol/L (3.5-5.1); PROTEIN - SERUM 5.5 g/dL (6.4-8.2)
--- NOTE | 2020-12-21 08:00 | NUR ---
PT AWAKE AND ALERT, C/O ANXIETY AND ASKING FOR ATIVAN.
[2020-12-21 09:07] VITALS: BP 111/74
[2020-12-21 14:20] VITALS: BP 99/61
[2020-12-21 17:00] VITALS: BP 87/55
[2020-12-21 20:00] VITALS: BP 100/55
--- NOTE | 2020-12-21 23:00 | NUR ---
Assumed care of pt after report/rounds. Pt resting in bed with O2 via NC. Denies pain/discomfort. RT in to work with pt this evening.
[2020-12-22] VITALS: BP 91/52
[2020-12-22 04:00] VITALS: BP 102/57
[2020-12-22 07:31] LABS: BASOPHILS 0 % (0-2); EOSINOPHILS 0.9 % (0-7); HEMATOCRIT 37.4 % (36.0-48.0); HEMOGLOBIN 11.9 g/dL (12-16); LYMPHOCYTE ABS# 1.84 10x3/uL (1.18-3.74); MCH 27.7 pg (26.0-34.0); MCHC 31.8 g/dL (31.0-37.0); MCV 87.2 fL (80.0-100.0); MEAN PLATELET VOLUME 10.3 fL (7.4-10.4); MONOCYTES 9.7 % (2-11); NEUTROPHIL ABS# 8.36 10x3/uL (1.56-6.13); NEUTROPHILS 72.4 % (40-80); PLATELET COUNT 434 10x3/uL (130-400); RBC 4.29 10x6/uL (4.00-5.40); RDW 16.1 % (11.5-14.5); WBC 11.5 10x3/uL (4.8-10.8)
[2020-12-22 07:38] LABS: ALBUMIN 2.4 g/dL (3.4-5.0); ANION GAP 9.8 mmol/L (8-16); BILIRUBIN - TOTAL 0.33 mg/dL (0.2-1.3); CALCIUM 8.5 mg/dL (8.5-10.1); CARBON DIOXIDE 30.2 mmol/L (21.0-32.0); CREATININE - SERUM 1.4 mg/dL (0.6-1.3); PROTEIN - SERUM 5.4 g/dL (6.4-8.2)
[2020-12-22 09:03] VITALS: BP 103/61
[2020-12-22 09:37] VITALS: BP 108/68
--- NOTE | 2020-12-22 12:10 | NUR ---
REHAB PRESCREEN RECEIVED. PATIENTS OCCUPATION THERAPY EVAL IS STILL PENDING. I WILL LOOK BACK LATER TO SEE PTS FUNCTIONAL STATUS, AND IF MEETS CRITERIA, WILL START WORKING ON ELECTRONIC SCREEN AND LET HIS CASEMANAGER KNOW. THANK YOU FOR THE REFERRAL. JUSTIN CROUCH RN CLINICAL LIAISON, INPATIENT REHAB.
[2020-12-22 13:38] VITALS: BP 102/61
[2020-12-22] MEDS ORDERED: IPRAT-ALBUT 0.5-3 ML INH (14:48)
[2020-12-22] MEDS ORDERED: IPRAT-ALBUT 0.5-3 ML UPD (14:48)
[2020-12-22] MEDS ORDERED: LEVOFLOXAC500 MG/100 IV (14:48)
[2020-12-22] MEDS ORDERED: BENADRYL25 MG PO (14:48)
[2020-12-22] MEDS ORDERED: ELAVIL25 MG PO (14:48)
[2020-12-22] MEDS ORDERED: PERFOROMIS20 MCG/21 UPD (14:48)
[2020-12-22] MEDS ORDERED: BUSPAR5 MG PO (14:49)
[2020-12-22] MEDS ORDERED: ASPIRIN81 MG PO (14:49)
[2020-12-22] MEDS ORDERED: FUROSEMIDE10 MG/M1 IV (14:49)
[2020-12-22] MEDS ORDERED: PREDNISONE20 MG PO (14:50)
[2020-12-22] MEDS ORDERED: FLORAJEN DIGES1 EACH PO (14:50)
[2020-12-22] MEDS ORDERED: LOVENOX40 MG/0.4 SC (14:50)
[2020-12-22] MEDS ORDERED: PROTONIX IV IV (14:51)
[2020-12-22] MEDS ORDERED: ATIVAN0.5 MG PO (14:51)
[2020-12-22] MEDS ORDERED: PROTONIX40 MG PO (15:00)
[2020-12-22] MEDS ORDERED: FUROSEMIDE20 MG PO (15:10)
--- NOTE | 2020-12-22 15:53 | NUR ---
Nutrition Re-Assessment: Diet: Cardiac PO intake: ~36% average x last 6 meals. She ate 40% - 50% -50% yesterday and 100% of breakfast this morning. She states that her appetite is improving. States that she likes Ensure and would like it with meals. Last BM: 12/19/20 Wt: 110# (12/18/20) Meds noted: abx, prednisone, lasix, d5 1/2NS@30 Labs noted: K 3.0(L), BUN 34(H), Cr 1.4(H), GFR 40(L), alb 2.4(L) Estimated nutrition needs: [id number] leo (25-30 IBW), 40-20gms protein (0.8-1), 1300-1575mL fluid (or per MD) Nutrition diagnosis: unchanged from initial nutrition assessment at this time Progressing towards meeting nutrition goals at this time. Recommendations/Interventions: -Continue current diet -Will continue to honor food preferences within diet restrictions. -Will add Ensure TID -RD will follow-up 12/25/20.
[2020-12-22 17:56] VITALS: BP 99/57
[2020-12-22] MEDS ORDERED: HYDROCODON-ACE1 EAC7 PO (17:58)
--- NOTE | 2020-12-22 17:59 | NUR ---
ADDED NORCO TO DISCHARGE MEDS PER NAOMI THOMAS.
== END 2020-12-22 18:25 | DRG 291 ==
LOC: D.ER 00:15 → D.MS 02:52
PROVIDERS: Emergency Medicine; ADMIT Family Medicine; ATTEND Family Medicine
DX: I50.23 Acute on chronic systolic (congestive) heart failure (principal); J18.9 Pneumonia, unspecified organism; E43 Unspecified severe protein-calorie malnutrition; N39.0 Urinary tract infection, site not specified; I42.9 Cardiomyopathy, unspecified; Z68.1 Body mass index [BMI] 19.9 or less, adult; C96.9 Malignant neoplasm of lymphoid, hematopoietic and related tissue, unspecified; B19.20 Unspecified viral hepatitis C without hepatic coma; I25.5 Ischemic cardiomyopathy; J45.909 Unspecified asthma, uncomplicated; J47.9 Bronchiectasis, uncomplicated; I70.203 Unspecified atherosclerosis of native arteries of extremities, bilateral legs; F32.9 Major depressive disorder, single episode, unspecified; Z72.0 Tobacco use; D50.9 Iron deficiency anemia, unspecified; I50.84 End stage heart failure; I27.20 Pulmonary hypertension, unspecified; I08.1 Rheumatic disorders of both mitral and tricuspid valves; I25.10 Atherosclerotic heart disease of native coronary artery without angina pectoris

== ENCOUNTER 2020-12-22 18:20 | Inpatient (IN) | payer MEDICARE ==
[~2020-12-22] VITALS: Ht 160 cm; Wt 51.3 kg
[~2020-12-22 18:20] MED LIST changes: +ASPIRIN81 MG PO; +ATIVAN0.5 MG PO; +BENADRYL25 MG PO; +BUSPAR5 MG PO; +ELAVIL25 MG PO; +FLORAJEN DIGES1 EACH PO; +FUROSEMIDE10 MG/M1 IV; +FUROSEMIDE20 MG PO; +HYDROCODON-ACE1 EAC7 PO; +IPRAT-ALBUT 0.5-3 ML INH; +IPRAT-ALBUT 0.5-3 ML UPD; +LEVOFLOXAC500 MG/100 IV; +LOVENOX40 MG/0.4 SC; +PERFOROMIS20 MCG/21 UPD; +PREDNISONE20 MG PO; +PROTONIX IV IV
--- NOTE | 2020-12-22 18:40 | NUR ---
RECIEVED FROM MED SURG TO ROOM 1112B.ORIENTED TO ROOM AND SURROUNDINGS.
[2020-12-22 18:46] VITALS: BP 104/47
[2020-12-22 20:02] VITALS: BP 104/47
--- NOTE | 2020-12-22 20:27 | NUR ---
ADMIT FOR PHYSICAL REHAB AND SERVICES OF DR VELÁZQUEZ. AWAKE AND ALERT. RIGHT ARM SALINE LOCK INTACT. TELEMETRY ON. NO ACUTE DISTRESS NOTED. CALL LIGHT IN REACH.
--- NOTE | 2020-12-22 21:26 | NUR ---
DR WANG NOTIFIED OF PT's BEHAVIOR AND ASSESSMENT RESULTS, PT IS A LOW RISK PER DR WANG. CHARGE NURSE AND ATTENDING AWARE OF RESULTS. DR PACHECO STATED TO GIVE RESOURSES TO PT AT TIME OF DISCHARGE. NO FURTHER ORDERS AT THIS TIME. RESOURCES REVIEWED WITH PT AND SHE VERBALIZED UNDERSTANDING.
--- NOTE | 2020-12-23 02:16 | NUR ---
RESTING IN BED WITH RESPIRATIONS UNLABORED. NO DISTRESS NOTED. CALL LIGHT IN REACH.
--- NOTE | 2020-12-23 05:56 | NUR ---
QUIET HOURS. NO ACUTE CHANGES IN CONDITION THIS SHIFT. RESTING IN BED WITH NO DISTRESS NOTED.
[2020-12-23 07:57] LABS: BASOPHILS 0.1 % (0-2); EOSINOPHILS 1.3 % (0-7); HEMATOCRIT 39.6 % (36.0-48.0); HEMOGLOBIN 12.7 g/dL (12-16); IMMATURE GRANULOCYTES 1.3 % (0-5); LYMPHOCYTES 14.8 % (15-50); MCHC 32.1 g/dL (31.0-37.0); MCV 87.4 fL (80.0-100.0); MEAN PLATELET VOLUME 10.1 fL (7.4-10.4); MONOCYTES 10.8 % (2-11); NEUTROPHIL ABS# 9.23 10x3/uL (1.56-6.13); NEUTROPHILS 71.7 % (40-80); PLATELET COUNT 421 10x3/uL (130-400); RBC 4.53 10x6/uL (4.00-5.40); RDW 16.2 % (11.5-14.5); WBC 12.9 10x3/uL (4.8-10.8)
[2020-12-23 08:05] VITALS: BP 113/64
[2020-12-23 08:07] LABS: ANION GAP 10.9 mmol/L (8-16); CALCIUM 8.7 mg/dL (8.5-10.1); CARBON DIOXIDE 28.8 mmol/L (21.0-32.0); CREATININE - SERUM 1.1 mg/dL (0.6-1.3)
[2020-12-23 08:08] LABS: POTASSIUM - SERUM 3.7 mmol/L (3.5-5.1)
[2020-12-23 09:41] VITALS: Ht 160 cm; Wt 51.3 kg
--- NOTE | 2020-12-23 16:07 | NUR ---
CARE TEAM MEETING: PATIENT IS NEW TO UNIT AND WILL BE RA AT NEXT MEETING.HER PCP IS DR. BRUMFIELD. PATIENT PRESENTED TO ER FROM THE [facility]. WILL CONTINUE TO FOLLOW WITH PATIENT AND WILL ASSIST WITH DC NEEDS.
--- NOTE | 2020-12-23 19:23 | NUR ---
PT IN BED, NO IMMEDIATE NEEDS NOTED, FLUIDS/CL WITHIN REACH
[2020-12-23 20:40] VITALS: BP 88/45
--- NOTE | 2020-12-24 00:30 | NUR ---
WHEN FLUSHING PT IV NOTED NO BLOOD DRAWBACK ON IV, FLUSHED WELL IV PATENT
[2020-12-24 07:56] VITALS: BP 92/49
--- NOTE | 2020-12-24 19:20 | NUR ---
CALLED AND LEFT MESSAGE FOR AT 1920, 194 AND 2017 REGARDING PTS BLOOD PRESSURE AFTER THE 500ML BOLUS OF FLUIDS. BP IS NOW 85/47, HEART RATE IS 72. PT IS C/O PAIN 05/07 TO HER LOWER BACK. THIS IS CHRONIC BACK PAIN, ACHING IN NATURE SHE STATES. PAIN MEDICATION WAS NOT ABLE TO BE ADMINISTERED BY DAYSHIFT TODAY DUE TO BP OF 74/40. DR. VELÁZQUEZ CALLED BACK AT 2019. PER DR. VELÁZQUEZ, OKAY TO GIVE HYDROCODONE ORDERED. NO FURTHER ORDERS GIVEN AT THIS TIME.
[2020-12-24 19:30] VITALS: BP 85/47
[2020-12-24 22:45] VITALS: BP 92/64
--- NOTE | 2020-12-25 02:35 | NUR ---
PT IS SITTING UP IN THE CHAIR. SHE HAS LEVAQUIN INFUSING THROUGH HER RIGHT FOREARM IV. SHE IS ON 2L NASAL CANNULA. O2 SAT 99%. SHE DENIES NEEDS AT THIS TIME. CALL LIGHT IS WITHIN REACH.
[2020-12-25 02:57] VITALS: BP 95/48
--- NOTE | 2020-12-25 02:58 | NUR ---
PT C/O PAIN 10/ TO BACK. BP IS 95/48, HEART RATE IS 75. NORCO GIVEN.
[2020-12-25 05:51] VITALS: BP 94/51
[2020-12-25 08:08] LABS: BASOPHILS 0.2 % (0-2); EOSINOPHILS 4.4 % (0-7); HEMATOCRIT 39.8 % (36.0-48.0); HEMOGLOBIN 12.6 g/dL (12-16); IMMATURE GRANULOCYTES 1.9 % (0-5); LYMPHOCYTE ABS# 2.44 10x3/uL (1.18-3.74); LYMPHOCYTES 22.2 % (15-50); MCH 28.1 pg (26.0-34.0); MCHC 31.7 g/dL (31.0-37.0); MCV 88.6 fL (80.0-100.0); MEAN PLATELET VOLUME 10.5 fL (7.4-10.4); MONOCYTES 13.1 % (2-11); NEUTROPHIL ABS# 6.39 10x3/uL (1.56-6.13); NEUTROPHILS 58.2 % (40-80); PLATELET COUNT 399 10x3/uL (130-400); RBC 4.49 10x6/uL (4.00-5.40); RDW 16.6 % (11.5-14.5)
[2020-12-25 08:40] LABS: ANION GAP 16.1 mmol/L (8-16); CALCIUM 8.6 mg/dL (8.5-10.1); CARBON DIOXIDE 25.2 mmol/L (21.0-32.0); CREATININE - SERUM 1.1 mg/dL (0.6-1.3)
[2020-12-25 08:44] LABS: POTASSIUM - SERUM 4.3 mmol/L (3.5-5.1)
--- NOTE | 2020-12-25 09:00 | NUR ---
SHE IS WORKING WITH PT. PRN GIVEN FOR PAIN. SHE IS WEARING 2 LITERS NC. HER TOES ARE PURPLE AND THE SOLES OF HER FEET.
--- NOTE | 2020-12-25 11:12 | NUR ---
Nutrition Follow-up: Diet: Cardiac + Ensure TID PO intake: none recorded since rehab admit, ate 100% of breakfast this AM Last BM: 12/20/20 Wt: 113# (12/23/20) Meds noted: probiotics, prednisone, microk, lasix Labs noted: Glu 69(L) Recommend MD consider liberalizing diet to regular to promote PO intake. Continue oral nutrition supplements TID. RD will follow-up 12/29/20.
[2020-12-25 11:43] VITALS: BP 102/55
[2020-12-25 15:56] VITALS: BP 97/51
[2020-12-25 19:34] VITALS: BP 103/55
--- NOTE | 2020-12-25 19:59 | NUR ---
PATIENT RECEIVED SITTING UP IN BED. ASSESSMENT & VITAL SIGNS DONE. NO C/O PAIN OR DISTRESS AT THIS TIME. ALARM ON. CALL LIGHT WITHIN REACH. WILL CONTINUE TO MONITOR.
--- NOTE | 2020-12-26 01:12 | NUR ---
I have reviewed this patient and I concur with the Shift Assessment completed by the Licensed Practical Nurse today this shift.
[2020-12-26 01:20] VITALS: BP 104/59
--- NOTE | 2020-12-26 04:27 | NUR ---
PATIENT EYES CLOSED. RESPIRATIONS 18 & EVEN. NO ASDVERSE REACTION TO IV ANTIBIOTICS AT THIS TIME. BED LOW. CALL LIGHT WITHIN REACH. WILL CONTINUE TO MONITOR.
[2020-12-26 07:00] VITALS: BP 101/55
--- NOTE | 2020-12-26 08:16 | NUR ---
WHEN I WAS GIVING HER MORNING MEDICAITONS, SHE C/O CHEST PAIN. CALLED THE MONITORS, SAID SR AT 70. EKG DONE AND CARDIAC ENZYMES DRAWN. STATE THE CHEST PAIN IS LESS NOW. WILL MONITOR. THE CALL LIGHT IS WITHIN REACH.
--- NOTE | 2020-12-26 09:42 | NUR ---
THE REELING OPERATOR CALLED HER RATE IS 50, SR.
[2020-12-26 09:46] LABS: CKMB 1.2 U/L (0.0-3.6); CREATINE KINASE 23 UL (21-215); TROPONIN-I 0.031 ng/mL (0.000-0.060)
--- NOTE | 2020-12-26 10:16 | NUR ---
ALL THE LABS, EKG ARE NORMAL. SHE IS C/O NAUSEA NOW. THE CALL LIGHT IS WITHIN REACH.
--- NOTE | 2020-12-26 10:35 | NUR ---
ZOFRAN GIVEN FOR NAUSEA. 1145 SHE STATES SHE FEELS A "LITTLE BETTER". 1212 SHE ATE SOME OF HER LUNCH.
--- NOTE | 2020-12-26 13:10 | NUR ---
SR WITH RATE, 73. SHE IS IN THE BATHROOM.
--- NOTE | 2020-12-26 13:38 | NUR ---
SHE IS FEELING BETTER, SHE IS WORKING WITH LUX, FROM PT.
[2020-12-26 15:41] LABS: CREATINE KINASE 23 UL (21-215); TROPONIN-I 0.027 ng/mL (0.000-0.060)
[2020-12-26 16:06] LABS: CKMB 1.3 U/L (0.0-3.6)
[2020-12-26 16:19] VITALS: BP 93/49
[2020-12-26 19:11] VITALS: BP 93/50
--- NOTE | 2020-12-26 19:39 | NUR ---
PATIENT RECEIVED SITTING UP IN BED. ASSESSMENT & VITAL SIGNS DONE. NO C/O PAIN OR DISTRESS AT THIS TIME. ALARM ON. BED LOW. CALL LIGHT WITHIN REACH. WILL CONTINUE TO MONITOR.
--- NOTE | 2020-12-27 00:59 | NUR ---
I have reviewed this patient and I concur with the Shift Assessment completed by the Licensed Practical Nurse today this shift.
[2020-12-27 02:08] LABS: CREATINE KINASE 22 UL (21-215); TROPONIN-I < 0.017 ng/mL (0.000-0.060)
[2020-12-27 08:00] VITALS: BP 96/51
[2020-12-27 19:00] VITALS: BP 102/45
--- NOTE | 2020-12-27 20:00 | NUR ---
PATIENT RECEIVED SITTING UP IN LOW BED. ASSESSMENT & VITAL SIGNS DONE. BEDSIDE TABLE & CALL LIGHT WITHIN REACH. WILL CONTINUE TO MONITOR.
--- NOTE | 2020-12-28 04:12 | NUR ---
PATIENT ON ROUNDS TITO ASSIST INTO BATHROOM. VOID ONLY. WASHED HANDS & RETURNED TO LOW BED. CALL LIGHT WITHIN REACH. WILL CONTINUE TO MONITOR.
[2020-12-28 08:11] LABS: BASOPHILS 0.6 % (0-2); EOSINOPHILS 1.7 % (0-7); HEMATOCRIT 41.4 % (36.0-48.0); HEMOGLOBIN 13.2 g/dL (12-16); IMMATURE GRANULOCYTES 0.2 % (0-5); LYMPHOCYTE ABS# 1.49 10x3/uL (1.18-3.74); LYMPHOCYTES 28.4 % (15-50); MCH 29.3 pg (26.0-34.0); MCHC 31.9 g/dL (31.0-37.0); MCV 91.8 fL (80.0-100.0); MEAN PLATELET VOLUME 10.1 fL (7.4-10.4); MONOCYTES 6.5 % (2-11); NEUTROPHIL ABS# 3.28 10x3/uL (1.56-6.13); NEUTROPHILS 62.6 % (40-80); RBC 4.51 10x6/uL (4.00-5.40); RDW 13.6 % (11.5-14.5); WBC 5.2 10x3/uL (4.8-10.8)
[2020-12-28 08:12] LABS: PLATELET COUNT 267 10x3/uL (130-400)
--- NOTE | 2020-12-28 08:15 | NUR ---
PT RESTING IN BED EATING BREAKFAST TOLERATING WELL WILL MONITER
[2020-12-28 08:30] VITALS: BP 110/60
[2020-12-28 09:40] LABS: ANION GAP 11.5 mmol/L (8-16); CALCIUM 8.4 mg/dL (8.5-10.1); CARBON DIOXIDE 27.5 mmol/L (21.0-32.0); CREATININE - SERUM 1.1 mg/dL (0.6-1.3)
--- NOTE | 2020-12-28 18:40 | NUR ---
PT RESTING IN BED WITH EYES OPEN CALL LIGHT IN REACH WILL MONITER
[2020-12-28 21:25] VITALS: BP 104/56
[2020-12-29 07:46] VITALS: BP 120/68
--- NOTE | 2020-12-29 11:07 | NUR ---
PATIENT DISHCARGING HOME TODAY WITH FAMILY. [facility] WILL PROVIDE THEREAPY AT HOME. [facility] SIGNED, IMM SERVED AND EXPLAINED, ONE GIVEN TO PATIENT AND ONE FILED IN CHART.COMPARE DATA REVIEWED , PATIENT VOICED UNSDERSTANDING. PATIENT TO CALL DR. BRUMFIELD OFFICE FOR APPOINTMENT, DR. RIGGS 02/24/21 @ 11:45. D/C INSTRUCTIONS FAXED TO PCP, HOME HEALTH AND REVIEWED WITH PATIENT.
[2020-12-29] MEDS ORDERED: HYDROCODON-ACE1 EAC7 PO (11:45)
--- NOTE | 2020-12-29 12:12 | NUR ---
Nutrition Follow-up: Patient states that she will discharge today. States that her appetite has been "wonderful" lately. Diet: Regular + Ensure TID PO intake: ~62% average x last 9 meals Last BM: 12/26/20 Wt: 113# (12/23/20) Meds noted: probiotics, prednisone, microk, lasix, abx, protonix Labs noted: Glu 118(H) Recommend continue current diet. Will continue to honor food preferences within diet restrictions. RD will follow-up within 7 days if patient still admitted.
--- NOTE | 2020-12-29 14:33 | NUR ---
PT RESTING IN BED WITH EYES OPEN CALL LIGHT IN REACH NO PROBLEMS WILL MONITER
--- NOTE | 2020-12-29 15:01 | NUR ---
PT DISCHARGED TO HOME VIA WHEELCHAIR WITH TAXI VIA O2 THAT WAS DELIVERED VIA [facility]. DISCHARGE SUMMARY AND MEDS REVIEWED WITH PT NO QUESTIONS OR CONCERNS TRIED TO CALL MEDS TO [facility] BUT POWER IS OUT AND NOT ABLE TO LEAVE A MESSAGE OR SPEAK TO ANYONE AT THIS STORE AT THIS TIME WILL CALL THEM LATER
--- NOTE | 2020-12-29 20:28 | RHP ---
PATIENT: DEE BROWN MEDICAL RECORD: [id number] ACCOUNT: [id number] LOCATION:[id number] : 51 ADMISSION DATE: 12/22/20 REHABILITATION HISTORY AND PHYSICAL EXAMINATION POST ADMISSION PHYSICIAN EXAMINATION POST ADMISSION PHYSICAL EXAMINATION AND HISTORY AND PHYSICAL ADMITTING DIAGNOSIS: Congestive heart failure induced myopathy. HISTORY OF PRESENT ILLNESS: The patient is a 65-year-old female patient of Dr. Richardson with a history of coronary artery disease status post coronary artery bypass grafting, myocardial infarction. She has got chronic systolic congestive heart failure, cardiomegaly. She apparently was discharged from [facility] on 12/17. She returned less than 24 hours later. During that admission between 12/05 and 12/17, she was treated for chest pain, CHF and pneumonia. During her hospitalization, she received antibiotics for an upper lobe pneumonia. She also had a cardiac catheterization, which revealed in-stent restenosis. She was discharged to a detention facility. She continued to have unexplained weight loss on presentation to the ED. She was weak. She was barely able to articulate any vocalizations. [facility] called 911 secondary to increased dyspnea. On arrival, her O2 sats were 100% on 2 liters. The patient has had associated malaise, weakness, lethargy, dyspnea on exertion, nonproductive cough, chest pain, orthopnea, myalgias and nausea. Chest x-ray showed prominence in the right upper lobe segment, a pneumonic process with a possible underlying malignancy. She was admitted with pneumonia and cachexia. She is noted to have moderate pulmonary hypertension, vntn-xi-amwjjmsi mitral regurg and tricuspid regurg. Her EF is 25% to 30%. The patient has got birgk-tv-msoicla congestive heart failure, critical illness myopathy and UTI, transaminitis, hepatitis C antibody present, cardiomyopathy and peripheral arterial disease, fatigue, depression, tobacco use all upon admission. The patient has also severe protein-calorie malnutrition. Pulmonary was consulted. She was placed on IV Levaquin, Solu-Medrol on electrolyte protocols and updraft treatments. The patient has improved with this. The patient will also need gastroesophageal reflux treatment and elevation of the head of bed at times. Cardiology was consulted secondary to an elevated BNP. She does have an ischemic cardiomyopathy with an EF now down to 10% to 15%. She is on 2 liters of O2 via nasal cannula. She reported to be anxious. Prior to hospitalization, she was actually independent with ADLs and ambulation with her son. She is currently ambulating 20 feet with proximal muscle weakness, fatigues easily, slow kody. She is mid-to-mod assist for ADLs and requiring intensive therapy to return back to her prior level of functioning. She is currently being monitored closely for lab values, cognition, medication adjustments, pain control, decreased activity tolerance, decreased strength, proximal muscle weakness, gait disturbance, impaired mobility, dyspnea on exertion, high fall risk and self-care deficits. These are all barriers to her discharge home. Comorbidities include cachexia, diffuse bronchiectasis, enlarged right hilar lymph nodes, severe malnutrition, asthma, coronary artery bypass grafting, cardiomyopathy, depression, transaminitis, peripheral arterial disease, malnutrition, leukocytosis. PAST MEDICAL HISTORY: Significant for known cardiovascular problems with stents, coronary artery bypass grafting, anemia, emphysema, asthma, possible malignancy of her lung, pneumonia, gastroesophageal reflux disease, chronic back pain, depression. HISTORY AND PHYSICAL [id number] DEE BROWN PAST SURGICAL HISTORY: Includes a , hysterectomy, coronary artery bypass grafting, laparoscopic cholecystectomy. ALLERGIES: PENICILLIN. CURRENT MEDICATIONS: Include Floranex, she is on a cap daily. She is on prednisone 20 mg daily, potassium 10 mEq daily. She is on enoxaparin 40 mg subcutaneously daily, aspirin chewable 81 mg daily, carvedilol 3.125 mg b.i.d. with meals, Carafate 2 grams b.i.d., Protonix 40 mg daily, furosemide 20 mg b.i.d., Levaquin 500 mg q.24 hours. She is on Brilinta 90 mg b.i.d., Entresto 1 tab b.i.d. of the , Singulair 10 mg daily. She is on BuSpar 5 mg b.i.d., amitriptyline 25 mg at bedtime, DuoNeb updrafts, lorazepam 0.5 mg q.8 hours, [place]leton 5/325 one tab q.6 hours p.r.n. and Benadryl as needed. HABITS: No alcohol or tobacco use. FAMILY HISTORY: Noncontributory. SOCIAL HISTORY: The patient wants to return back home and get back to her prior level of functioning. REVIEW OF SYSTEMS: GENERAL: Does complain of weakness and fatigue. HEENT: Does complain of cold, cough and congestion. CARDIOVASCULAR: Denies any chest pain. LUNGS: Does complain of shortness of breath, especially with exertion. PHYSICAL EXAMINATION: VITAL SIGNS: Stable. She is afebrile. GENERAL: An elderly female in no acute distress, alert upon exam. HEENT: Normocephalic, atraumatic. Mucosa moist. NECK: Supple. No lymphadenopathy. LUNGS: Clear in upper casarez. Decreased breath sounds in the bases. CARDIOVASCULAR: Regular rate and rhythm. ABDOMEN: Soft, benign, nondistended. Positive bowel sounds times 4. EXTREMITIES: No clubbing, cyanosis or edema. NEUROLOGIC: She does have diffuse weakness. LABORATORY DATA: Her white count is 12.9 probably secondary to her prednisone. Her H&H are 12 and 39 and platelet count was noted to be 421. Her sodium was 137, potassium 3.7, BUN and creatinine are 34 and 1.1. Blood sugar was noted to be 88. ASSESSMENT: A 65-year-old female patient admitted to the rehab with a working diagnosis of congestive heart failure induced myopathy. The patient has potential to make improvement. We instituted the following multidisciplinary therapies including, not limited to physical, occupational, respiratory, speech, nutritional services, prosthetics and orthotics. Given her complex medical condition and risks for more complications, rehabilitation services cannot be provided at a low level of care such as detention facility. PLAN: 1. [facility] to include the following disciplines: HISTORY AND PHYSICAL [id number] DEE BROWN A. Physical therapy to improve gait, all transfer skills and bed mobility to a modified independent level. B. Occupational therapy to improve activities of daily living. C. Case management to help with discharge planning and placement options. D. Nutrition to assist with nutritional needs. E. Rehabilitation nursing to assist in monitoring the patient's underlying medical conditions and to assist with any type of bowel or bladder management. 2. The patient's current medications and medical care will be continued. 3. Placed on standard fall precautions. 4. We will manage her medications closely and see again in the a.m. TRANSINT:[id number] Voice Confirmation ID: [id number] DOCUMENT ID: [id number] NADYA notes whether there has been none or any medical/functional change since admission: - NADYA attests patient continues to be appropriate for IRF: - ROSA MARIA VELÁZQUEZ MD at 2028 CC: [id number] DICTATION DATE: 12/23/20830 INTERIOR DESIGN PRINCIPAL: 12/23/20929 DIS IN 12/29/20 [facility] [address] [place] [address]
== END 2020-12-29 15:07 | disposition home health service (06) | DRG 91 ==
LOC: D.REHAB 18:20
PROVIDERS: ADMIT Emergency Medicine; ATTEND Emergency Medicine
DX: G72.89 Other specified myopathies (principal); E43 Unspecified severe protein-calorie malnutrition; J18.9 Pneumonia, unspecified organism; I50.22 Chronic systolic (congestive) heart failure; R64 Cachexia; I42.9 Cardiomyopathy, unspecified; J47.9 Bronchiectasis, uncomplicated; Z95.1 Presence of aortocoronary bypass graft; F32.9 Major depressive disorder, single episode, unspecified; R74.01 Elevation of levels of liver transaminase levels; I73.9 Peripheral vascular disease, unspecified; R59.0 Localized enlarged lymph nodes; R26.9 Unspecified abnormalities of gait and mobility; J45.909 Unspecified asthma, uncomplicated; I25.10 Atherosclerotic heart disease of native coronary artery without angina pectoris; I11.0 Hypertensive heart disease with heart failure; R13.10 Dysphagia, unspecified; F17.200 Nicotine dependence, unspecified, uncomplicated; D64.9 Anemia, unspecified